=== PATIENT | male | born 1935 | race Two or more races ===

== ENCOUNTER 2016-08-26 16:28 | Inpatient (IN) | payer OTHER ==
[~2016-08-26] VITALS: Ht 154.9 cm; Wt 46.0 kg
[~2016-08-26 16:28] MED LIST: ASCO500 PO; ASPI81TA2 PO; ATOR20TA65 PO; FERR-89 PO; GLIP5TAB11 PO; ISOS30TA6 PO; METF10002 PO; METO-325 PO; NITR.4 SL; [UNRECOGNIZED DRUG - CODE] PO
[2016-08-26 16:47] LABS: GLUCOSE,POINT OF CARE 212 MG/DL (70-110)
[2016-08-26] MEDS ORDERED: HYDR25TA PO (16:49)
[2016-08-26] MEDS ORDERED: CLOP75 PO (16:49)
[2016-08-26] MEDS ORDERED: OMEP20 PO (16:49)
[2016-08-26] MEDS ORDERED: CILO100T PO (16:49)
[2016-08-26 18:04] LABS: BASOPHILS # (AUTO) 0.05 K/uL (0.00-0.20); BASOPHILS % (AUTO) 0.5 % (0.0-2.0); EOSINOPHILS # (AUTO) 0.14 K/uL (0.00-0.70); EOSINOPHILS % (AUTO) 1.38 % (1.0-6.0); HEMATOCRIT 30.8 % (41-53); HEMOGLOBIN 10.3 g/dL (13.5-17.5); LYMPHOCYTES # (AUTO) 0.9 K/uL (1.0-4.8); LYMPHOCYTES % (AUTO) 9.1 % (22.0-44.0); MEAN CORPUSCULAR HEMOGLOBIN 27.8 pg (26.0-34.0); MEAN CORPUSCULAR HGB CONC 33.5 G/dL (31.0-37.0); MEAN CORPUSCULAR VOLUME 83 fL (80-100); MONOCYTES # (AUTO) 0.6 K/uL (0.1-1.0); MONOCYTES % (AUTO) 6.5 % (2.0-9.0); NEUTROPHILS # (AUTO) 8.2 K/uL (1.8-7.7); NEUTROPHILS % (AUTO) 82.6 % (40.0-70.0); PLATELET COUNT (AUTO) 351 K/uL (150-450); RED BLOOD CELL COUNT(AUTO) 3.71 MIL/uL (4.50-5.90); WHITE BLOOD COUNT (AUTO) 9.9 K/uL (4.5-11.0)
[2016-08-26 18:14] LABS: ANION GAP 8 mmol/L (8-16); CALCIUM, TOTAL 9.1 mg/dL (8.8-10.5); CARBON DIOXIDE 31 mmol/L (22-29); CHLORIDE 97 mmol/L (98-107); CREATININE 0.76 mg/dL (0.60-1.30); GLOMERULAR FILTR. RATE CALC > 60 mL/min (>60); POTASSIUM 4.7 mmol/L (3.5-5.1); SODIUM SERUM 136 mmol/L (136-145); UREA NITROGEN, BLOOD 11 mg/dL (7-18)
[2016-08-26 18:20] LABS: ALANINE AMINOTRANSFERASE 11 U/L (12-78); ASPARTATE AMINOTRANSFERASE 13 U/L (15-37); BILIRUBIN,TOTAL 0.4 mg/dL (0.1-1.0); CREATINE KINASE, TOTAL 39 U/L (39-308); TOTAL PROTEIN, SERUM 7.2 g/dL (6.4-8.2)
[2016-08-26 18:22] LABS: B-TYPE NATRIURETIC PEPTIDE 10 pg/mL (0-100)
[2016-08-26] MEDS ORDERED: ACETAMINOPHEN 325 MG TABLET PO ONE (18:30)
[2016-08-26] MEDS ORDERED: PANTOPRAZOLE SODIUM 40 MG/VIAL IVP ONE (18:30)
[2016-08-26] MEDS ORDERED: SODIUM CHLORIDE 0.9% 1,000 ML IV ONE (18:30)
[2016-08-26] MEDS ORDERED: ONDANSETRON HCL 4 MG/2 ML VIAL IVP ONE (18:30)
[2016-08-26] MEDS ORDERED: PIPERACILLIN/TAZO 3.375 GM/D5W 50 ML IV ONE (19:15)
[2016-08-26] MEDS ORDERED: LEVOFLOXACIN 500 MG/D5% WATER 100 ML IV ONE (19:15)
[2016-08-26] MEDS ORDERED: ACETAMINOPHEN 325 MG TABLET PO PRN (19:30)
[2016-08-26] MEDS ORDERED: ONDANSETRON HCL 4 MG/2 ML VIAL IVP PRN (19:30)
[2016-08-26] MEDS ORDERED: SODIUM CHLORIDE 0.9% 100 ML ONE (20:00)
[2016-08-26] MEDS ORDERED: IOVERSOL 350 MG/ML 100 ML VIAL ONE (20:00)
[2016-08-26 21:32] LABS: ADD UA MICROSCOPIC NO; APPEARANCE,URINE CLEAR (CLEAR); GLUCOSE, URINE (UA) NEGATIVE (NEGATIVE); KETONES,URINE NEGATIVE (NEGATIVE); LEUKOCYTE ESTERASE ,URINE NEGATIVE (NEGATIVE); OCCULT BLOOD,URINE NEGATIVE (NEGATIVE); PH,URINE 6.5 (5.0-8.0); PROTEIN,URINE NEGATIVE (NEGATIVE)
[2016-08-26 22:16] VITALS: BP 115/57
[2016-08-27] VITALS (7 sets, daily range): BP systolic 94–122; BP diastolic 48–61
[2016-08-27 01:52] LABS: GLUCOSE,POINT OF CARE 165 MG/DL (70-110)
[2016-08-27] MEDS ORDERED: PANTOPRAZOLE SODIUM 40 MG/VIAL IVP SCH (09:00)
[2016-08-27] MEDS ORDERED: INSLAN SQ (09:21)
[2016-08-27] MEDS ORDERED: CLOPIDOGREL BISULFATE 75 MG TABLET PO SCH (09:45)
[2016-08-27] MEDS: CILOSTAZOL 100 MG TABLET PO SCH (09:45)
[2016-08-27] MEDS: ASPIRIN 81 MG CHEWABLE TABLET PO SCH ×2 (09:45→10:33)
[2016-08-27] MEDS: FERROUS SULFATE 325 MG EC TABLET PO SCH (10:33)
[2016-08-27] MEDS: HYDROCHLOROTHIAZIDE 25 MG TABLET PO SCH (10:33)
[2016-08-27] MEDS: INSULIN ASPART 100 UNITS/ML SQ PRN ×2 (12:21→18:04)
[2016-08-27 13:23] LABS: GLUCOSE COMMENT 1 Received Meds; GLUCOSE,POINT OF CARE 199 MG/DL (70-110)
[2016-08-27 13:23] LABS: GLUCOSE,POINT OF CARE 136 MG/DL (70-110)
[2016-08-27] MEDS: MetFORMIN HCL 500 MG TABLET PO SCH (17:43)
[2016-08-27 20:06] LABS: GLUCOSE COMMENT 1 Received Meds; GLUCOSE,POINT OF CARE 173 MG/DL (70-110)
[2016-08-27] MEDS: ATORVASTATIN CALCIUM 10 MG TABLET PO SCH (20:43)
[2016-08-27] MEDS: INSULIN DETEMIR 100 UNITS/ML SQ SCH (20:48)
[2016-08-27] MEDS ORDERED: OMEPRAZOLE 20 MG CAPSULE PO SCH (21:00)
[2016-08-28 05:29] VITALS: BP 104/58
[2016-08-28] MEDS: INSULIN ASPART 100 UNITS/ML SQ PRN ×4 (06:09→21:50)
[2016-08-28 06:18] LABS: BASOPHILS % (AUTO) 0.4 % (0.0-2.0); EOSINOPHILS % (AUTO) 1.1 % (1.0-6.0); HEMATOCRIT 28.3 % (41-53); HEMOGLOBIN 9.2 g/dL (13.5-17.5); LYMPHOCYTES # (AUTO) 0.7 K/uL (1.0-4.8); LYMPHOCYTES % (AUTO) 9.4 % (22.0-44.0); MEAN CORPUSCULAR HEMOGLOBIN 27.4 pg (26.0-34.0); MEAN CORPUSCULAR HGB CONC 32.7 G/dL (31.0-37.0); MEAN CORPUSCULAR VOLUME 84 fL (80-100); MONOCYTES # (AUTO) 0.6 K/uL (0.1-1.0); MONOCYTES % (AUTO) 7.4 % (2.0-9.0); NEUTROPHILS # (AUTO) 6.2 K/uL (1.8-7.7); NEUTROPHILS % (AUTO) 81.7 % (40.0-70.0); PLATELET COUNT (AUTO) 299 K/uL (150-450); RED BLOOD CELL COUNT(AUTO) 3.38 MIL/uL (4.50-5.90); RED CELL DISTRIBUTION WIDTH 15.4 % (11.5-14.5); WHITE BLOOD COUNT (AUTO) 7.6 K/uL (4.5-11.0)
[2016-08-28 06:48] LABS: ANION GAP 9 mmol/L (8-16); CALCIUM, TOTAL 8.5 mg/dL (8.8-10.5); CARBON DIOXIDE 30 mmol/L (22-29); CHLORIDE 97 mmol/L (98-107); CHOL/HDL RATIO 2.9 (4.2-7.3); CREATININE 0.73 mg/dL (0.60-1.30); GLOMERULAR FILTR. RATE CALC > 60 mL/min (>60); POTASSIUM 4.1 mmol/L (3.5-5.1); SODIUM SERUM 136 mmol/L (136-145); UREA NITROGEN, BLOOD 10 mg/dL (7-18)
[2016-08-28 07:32] LABS: GLUCOSE COMMENT 1 Received Meds; GLUCOSE,POINT OF CARE 152 MG/DL (70-110)
[2016-08-28 07:39] LABS: HEMOGLOBIN A1C 7.7 % (4.5-6.2)
[2016-08-28 07:54] VITALS: BP 96/48
[2016-08-28] MEDS: HYDROCHLOROTHIAZIDE 25 MG TABLET PO SCH (09:00)
[2016-08-28] MEDS: CILOSTAZOL 100 MG TABLET PO SCH (09:00)
[2016-08-28] MEDS: MetFORMIN HCL 500 MG TABLET PO SCH ×2 (09:37→18:02)
[2016-08-28] MEDS: LEVOFLOXACIN 500 MG TABLET PO SCH (09:37)
[2016-08-28] MEDS: FERROUS SULFATE 325 MG EC TABLET PO SCH (10:28)
[2016-08-28 11:31] VITALS: BP 107/60
[2016-08-28] MEDS ORDERED: MAGNESIUM SULFATE 4 GM/WATER 100 ML IV ONE (12:00)
[2016-08-28 15:32] VITALS: BP 104/57
[2016-08-28] MEDS ORDERED: MAGNESIUM SULFATE 4 GM/WATER 100 ML IV PRN (19:30)
[2016-08-28 19:42] VITALS: BP 113/62
[2016-08-28] MEDS: PANTOPRAZOLE SODIUM 40 MG DR TABLET PO SCH (20:12)
[2016-08-28] MEDS: ATORVASTATIN CALCIUM 10 MG TABLET PO SCH (20:12)
[2016-08-28] MEDS: INSULIN DETEMIR 100 UNITS/ML SQ SCH (21:49)
[2016-08-28 23:45] VITALS: BP 108/67
[2016-08-29 02:57] LABS: GLUCOSE COMMENT 1 Received Meds; GLUCOSE,POINT OF CARE 158 MG/DL (70-110)
[2016-08-29 04:29] VITALS: BP 93/54
[2016-08-29 06:11] LABS: ANION GAP 7 mmol/L (8-16); CALCIUM, TOTAL 8.2 mg/dL (8.8-10.5); CARBON DIOXIDE 30 mmol/L (22-29); CHLORIDE 101 mmol/L (98-107); CREATININE 0.64 mg/dL (0.60-1.30); GLOMERULAR FILTR. RATE CALC > 60 mL/min (>60); POTASSIUM 4.1 mmol/L (3.5-5.1); SODIUM SERUM 138 mmol/L (136-145); UREA NITROGEN, BLOOD 12 mg/dL (7-18)
[2016-08-29 06:13] LABS: BASOPHILS # (AUTO) 0.01 K/uL (0.00-0.20); BASOPHILS % (AUTO) 0.2 % (0.0-2.0); EOSINOPHILS # (AUTO) 0.02 K/uL (0.00-0.70); HEMATOCRIT 25.7 % (41-53); HEMOGLOBIN 8.5 g/dL (13.5-17.5); LYMPHOCYTES # (AUTO) 0.6 K/uL (1.0-4.8); LYMPHOCYTES % (AUTO) 7.1 % (22.0-44.0); MEAN CORPUSCULAR HEMOGLOBIN 27.7 pg (26.0-34.0); MEAN CORPUSCULAR HGB CONC 33.2 G/dL (31.0-37.0); MEAN CORPUSCULAR VOLUME 83 fL (80-100); MONOCYTES # (AUTO) 0.5 K/uL (0.1-1.0); MONOCYTES % (AUTO) 6.5 % (2.0-9.0); NEUTROPHILS # (AUTO) 6.9 K/uL (1.8-7.7); PLATELET COUNT (AUTO) 273 K/uL (150-450); RED BLOOD CELL COUNT(AUTO) 3.08 MIL/uL (4.50-5.90); RED CELL DISTRIBUTION WIDTH 15.9 % (11.5-14.5)
[2016-08-29 06:38] LABS: NEUTROPHILS % (AUTO) 86.1 % (40.0-70.0)
[2016-08-29 07:53] VITALS: BP 106/54
[2016-08-29] MEDS: FERROUS SULFATE 325 MG EC TABLET PO SCH (08:20)
[2016-08-29] MEDS: CILOSTAZOL 100 MG TABLET PO SCH (08:21)
[2016-08-29] MEDS: MetFORMIN HCL 500 MG TABLET PO SCH ×2 (08:21→17:48)
[2016-08-29 11:25] VITALS: BP 104/77
[2016-08-29] MEDS: LEVOFLOXACIN 500 MG TABLET PO SCH (12:15)
[2016-08-29] MEDS: INSULIN ASPART 100 UNITS/ML SQ PRN ×2 (12:16→20:54)
[2016-08-29] MEDS: HYDROCHLOROTHIAZIDE 25 MG TABLET PO SCH (12:20)
[2016-08-29 14:54] VITALS: BP 96/52
[2016-08-29 17:57] LABS: GLUCOSE,POINT OF CARE 130 MG/DL (70-110)
[2016-08-29 19:52] VITALS: BP 117/57
[2016-08-29 20:07] LABS: GLUCOSE,POINT OF CARE 120 MG/DL (70-110)
[2016-08-29 20:12] LABS: GLUCOSE COMMENT 1 Received Meds; GLUCOSE,POINT OF CARE 208 MG/DL (70-110)
[2016-08-29 20:12] LABS: GLUCOSE COMMENT 1 Received Meds; GLUCOSE,POINT OF CARE 190 MG/DL (70-110)
[2016-08-29] MEDS: PANTOPRAZOLE SODIUM 40 MG DR TABLET PO SCH (20:22)
[2016-08-29] MEDS: ATORVASTATIN CALCIUM 10 MG TABLET PO SCH (20:23)
[2016-08-29 20:42] LABS: GLUCOSE,POINT OF CARE 60 MG/DL (70-110)
[2016-08-29 20:43] LABS: GLUCOSE COMMENT 1 Received Meds; GLUCOSE,POINT OF CARE 142 MG/DL (70-110)
[2016-08-29 20:43] LABS: GLUCOSE COMMENT 1 Received Meds; GLUCOSE,POINT OF CARE 156 MG/DL (70-110)
[2016-08-29] MEDS: INSULIN DETEMIR 100 UNITS/ML SQ SCH (20:54)
[2016-08-29 21:32] LABS: GLUCOSE,POINT OF CARE 148 MG/DL (70-110)
[2016-08-29 23:22] VITALS: BP 100/59
[2016-08-30 05:31] VITALS: BP 95/53
[2016-08-30 06:03] LABS: BASOPHILS % (AUTO) 0.3 % (0.0-2.0); EOSINOPHILS % (AUTO) 0.6 % (1.0-6.0); HEMOGLOBIN 9.3 g/dL (13.5-17.5); LYMPHOCYTES # (AUTO) 0.8 K/uL (1.0-4.8); MEAN CORPUSCULAR VOLUME 84 fL (80-100); MONOCYTES # (AUTO) 0.6 K/uL (0.1-1.0); MONOCYTES % (AUTO) 6.5 % (2.0-9.0); NEUTROPHILS # (AUTO) 7.4 K/uL (1.8-7.7); NEUTROPHILS % (AUTO) 83.6 % (40.0-70.0); PLATELET COUNT (AUTO) 300 K/uL (150-450); RED BLOOD CELL COUNT(AUTO) 3.44 MIL/uL (4.50-5.90); RED CELL DISTRIBUTION WIDTH 15.5 % (11.5-14.5); WHITE BLOOD COUNT (AUTO) 8.9 K/uL (4.5-11.0)
[2016-08-30] MEDS: DEXTROSE 50%-WATER 25 GM/50 ML SYRINGE IVP PRN (06:48)
[2016-08-30 07:04] LABS: ALANINE AMINOTRANSFERASE 11 U/L (12-78); ALBUMIN 2.4 g/dL (3.4-5.0); ANION GAP 9 mmol/L (8-16); ASPARTATE AMINOTRANSFERASE 15 U/L (15-37); BILIRUBIN,TOTAL 0.4 mg/dL (0.1-1.0); CALCIUM, TOTAL 8.4 mg/dL (8.8-10.5); CARBON DIOXIDE 29 mmol/L (22-29); CHLORIDE 101 mmol/L (98-107); CREATININE 0.62 mg/dL (0.60-1.30); GLOMERULAR FILTR. RATE CALC > 60 mL/min (>60); SODIUM SERUM 139 mmol/L (136-145); TOTAL PROTEIN, SERUM 6.3 g/dL (6.4-8.2); UREA NITROGEN, BLOOD 13 mg/dL (7-18)
[2016-08-30 07:17] VITALS: BP 116/55
[2016-08-30 07:17] LABS: GLUCOSE COMMENT 1 Juice/Food/D50 Given; GLUCOSE,POINT OF CARE 62 MG/DL (70-110)
[2016-08-30 07:17] LABS: GLUCOSE COMMENT 1 Juice/Food/D50 Given; GLUCOSE,POINT OF CARE 56 MG/DL (70-110)
[2016-08-30 07:17] LABS: GLUCOSE,POINT OF CARE 221 MG/DL (70-110)
[2016-08-30] MEDS: FERROUS SULFATE 325 MG EC TABLET PO SCH (08:41)
[2016-08-30] MEDS: MetFORMIN HCL 500 MG TABLET PO SCH ×2 (08:41→17:24)
[2016-08-30] MEDS: RIFAMPIN 150 MG CAPSULE PO SCH (08:41)
[2016-08-30] MEDS: HYDROCHLOROTHIAZIDE 25 MG TABLET PO SCH (08:41)
[2016-08-30] MEDS: PYRIDOXINE HCL 50 MG TABLET PO SCH (08:42)
[2016-08-30] MEDS: CILOSTAZOL 100 MG TABLET PO SCH (08:42)
[2016-08-30] MEDS: PYRAZINAMIDE 500 MG TABLET PO SCH (08:42)
[2016-08-30] MEDS: ETHAMBUTOL HCL 400 MG TABLET PO SCH (08:42)
[2016-08-30] MEDS: ISONIAZID 100 MG TABLET PO SCH (08:43)
[2016-08-30 12:18] VITALS: BP 119/74
[2016-08-30 16:38] VITALS: BP 103/64
[2016-08-30 18:32] LABS: GLUCOSE,POINT OF CARE 88 MG/DL (70-110)
[2016-08-30 18:32] LABS: GLUCOSE,POINT OF CARE 114 MG/DL (70-110)
[2016-08-30] MEDS: PANTOPRAZOLE SODIUM 40 MG DR TABLET PO SCH (20:51)
[2016-08-30] MEDS: ATORVASTATIN CALCIUM 10 MG TABLET PO SCH (20:51)
[2016-08-30] MEDS: INSULIN DETEMIR 100 UNITS/ML SQ SCH (21:02)
[2016-08-30 21:09] VITALS: BP 114/58
[2016-08-31] VITALS (7 sets, daily range): BP systolic 96–124; BP diastolic 51–74
[2016-08-31 00:07] LABS: GLUCOSE,POINT OF CARE 90 MG/DL (70-110)
[2016-08-31] MEDS: DEXTROSE 50%-WATER 25 GM/50 ML SYRINGE IVP PRN (06:04)
[2016-08-31 07:52] LABS: GLUCOSE COMMENT 1 Repeated; GLUCOSE,POINT OF CARE 53 MG/DL (70-110)
[2016-08-31 07:57] LABS: GLUCOSE COMMENT 1 Repeated; GLUCOSE,POINT OF CARE 205 MG/DL (70-110)
[2016-08-31 07:57] LABS: GLUCOSE COMMENT 1 Juice/Food/D50 Given; GLUCOSE,POINT OF CARE 52 MG/DL (70-110)
[2016-08-31] MEDS: MetFORMIN HCL 500 MG TABLET PO SCH ×2 (08:52→18:06)
[2016-08-31] MEDS: PYRIDOXINE HCL 50 MG TABLET PO SCH (08:52)
[2016-08-31] MEDS: FERROUS SULFATE 325 MG EC TABLET PO SCH (08:53)
[2016-08-31] MEDS: HYDROCHLOROTHIAZIDE 25 MG TABLET PO SCH (08:53)
[2016-08-31] MEDS: RIFAMPIN 150 MG CAPSULE PO SCH (08:53)
[2016-08-31] MEDS: PYRAZINAMIDE 500 MG TABLET PO SCH (08:54)
[2016-08-31] MEDS: ETHAMBUTOL HCL 400 MG TABLET PO SCH (08:54)
[2016-08-31] MEDS: CILOSTAZOL 100 MG TABLET PO SCH (08:54)
[2016-08-31] MEDS: ISONIAZID 100 MG TABLET PO SCH (08:55)
[2016-08-31 11:52] LABS: GLUCOSE COMMENT 1 Doctor Notified; GLUCOSE,POINT OF CARE 69 MG/DL (70-110)
[2016-08-31 17:32] LABS: GLUCOSE,POINT OF CARE 94 MG/DL (70-110)
[2016-08-31] MEDS: ATORVASTATIN CALCIUM 10 MG TABLET PO SCH (20:43)
[2016-08-31] MEDS: PANTOPRAZOLE SODIUM 40 MG DR TABLET PO SCH (20:44)
[2016-08-31] MEDS: INSULIN DETEMIR 100 UNITS/ML SQ SCH (20:45)
[2016-08-31 20:52] LABS: GLUCOSE COMMENT 1 Received Meds; GLUCOSE,POINT OF CARE 90 MG/DL (70-110)
[2016-09-01 04:48] VITALS: BP 107/50
[2016-09-01 06:21] LABS: GLUCOSE,POINT OF CARE 107 MG/DL (70-110)
[2016-09-01 06:37] LABS: BASOPHILS % (AUTO) 0.5 % (0.0-2.0); EOSINOPHILS % (AUTO) 2.2 % (1.0-6.0); HEMATOCRIT 28.8 % (41-53); HEMOGLOBIN 9.3 g/dL (13.5-17.5); LYMPHOCYTES # (AUTO) 1.1 K/uL (1.0-4.8); LYMPHOCYTES % (AUTO) 15.2 % (22.0-44.0); MEAN CORPUSCULAR HEMOGLOBIN 27.4 pg (26.0-34.0); MEAN CORPUSCULAR HGB CONC 32.3 G/dL (31.0-37.0); MEAN CORPUSCULAR VOLUME 85 fL (80-100); MONOCYTES # (AUTO) 0.5 K/uL (0.1-1.0); MONOCYTES % (AUTO) 7.4 % (2.0-9.0); NEUTROPHILS # (AUTO) 5.3 K/uL (1.8-7.7); NEUTROPHILS % (AUTO) 74.7 % (40.0-70.0); PLATELET COUNT (AUTO) 315 K/uL (150-450); RED BLOOD CELL COUNT(AUTO) 3.39 MIL/uL (4.50-5.90); RED CELL DISTRIBUTION WIDTH 16.2 % (11.5-14.5); WHITE BLOOD COUNT (AUTO) 7.1 K/uL (4.5-11.0)
[2016-09-01 06:39] LABS: ANION GAP 10 mmol/L (8-16); CALCIUM, TOTAL 8.3 mg/dL (8.8-10.5); CARBON DIOXIDE 26 mmol/L (22-29); CHLORIDE 96 mmol/L (98-107); CREATININE 0.81 mg/dL (0.60-1.30); GLOMERULAR FILTR. RATE CALC > 60 mL/min (>60); POTASSIUM 4.3 mmol/L (3.5-5.1); SODIUM SERUM 132 mmol/L (136-145); UREA NITROGEN, BLOOD 18 mg/dL (7-18)
[2016-09-01] MEDS: FERROUS SULFATE 325 MG EC TABLET PO SCH (07:44)
[2016-09-01] MEDS: MetFORMIN HCL 500 MG TABLET PO SCH ×2 (07:44→18:04)
[2016-09-01] MEDS: HYDROCHLOROTHIAZIDE 25 MG TABLET PO SCH (07:44)
[2016-09-01] MEDS: RIFAMPIN 150 MG CAPSULE PO SCH (07:45)
[2016-09-01] MEDS: ETHAMBUTOL HCL 400 MG TABLET PO SCH (07:45)
[2016-09-01] MEDS: PYRIDOXINE HCL 50 MG TABLET PO SCH (07:45)
[2016-09-01] MEDS: ISONIAZID 100 MG TABLET PO SCH (07:45)
[2016-09-01] MEDS: PYRAZINAMIDE 500 MG TABLET PO SCH (07:45)
[2016-09-01] MEDS: CILOSTAZOL 100 MG TABLET PO SCH (07:45)
[2016-09-01] MEDS ORDERED: SODIUM CHLORIDE 0.9% 250 ML IV ONE (08:06)
[2016-09-01 08:15] VITALS: BP 106/51
[2016-09-01] MEDS: MAGNESIUM SULFATE 2 GM in DEXTROSE 5%-WATER 50 ML IV PRN (08:18)
[2016-09-01 11:00] VITALS: BP 99/57
[2016-09-01 11:37] LABS: GLUCOSE,POINT OF CARE 90 MG/DL (70-110)
[2016-09-01 15:00] VITALS: BP 114/56
[2016-09-01] MEDS ORDERED: ATOR10TA84 PO (15:48)
[2016-09-01] MEDS ORDERED: 0.9% SODIUM CHLORIDE 10 ML SYRINGE IVP PRN (16:00)
[2016-09-01 17:42] LABS: GLUCOSE,POINT OF CARE 84 MG/DL (70-110)
[2016-09-01 20:08] VITALS: BP 121/74
[2016-09-01] MEDS: ATORVASTATIN CALCIUM 10 MG TABLET PO SCH (20:19)
[2016-09-01] MEDS: PANTOPRAZOLE SODIUM 40 MG DR TABLET PO SCH (20:19)
[2016-09-01] MEDS: INSULIN DETEMIR 100 UNITS/ML SQ SCH (20:20)
[2016-09-01] MEDS: INSULIN ASPART 100 UNITS/ML SQ PRN (20:21)
[2016-09-01 20:32] LABS: GLUCOSE COMMENT 1 Received Meds; GLUCOSE,POINT OF CARE 153 MG/DL (70-110)
[2016-09-01 23:13] VITALS: BP 100/52
[2016-09-02] MEDS: CILOSTAZOL 100 MG TABLET PO SCH (05:29)
[2016-09-02 06:05] VITALS: BP 102/52
[2016-09-02 06:41] LABS: GLUCOSE COMMENT 1 Juice/Food/D50 Given; GLUCOSE,POINT OF CARE 76 MG/DL (70-110)
[2016-09-02 07:10] VITALS: BP 101/56
[2016-09-02 07:48] LABS: ANION GAP 6 mmol/L (8-16); CALCIUM, TOTAL 8.3 mg/dL (8.8-10.5); CARBON DIOXIDE 28 mmol/L (22-29); CHLORIDE 98 mmol/L (98-107); CREATININE 0.81 mg/dL (0.60-1.30); GLOMERULAR FILTR. RATE CALC > 60 mL/min (>60); POTASSIUM 5.3 mmol/L (3.5-5.1); SODIUM SERUM 132 mmol/L (136-145); UREA NITROGEN, BLOOD 16 mg/dL (7-18)
[2016-09-02] MEDS: MAGNESIUM OXIDE 400 MG TABLET PO PRN ×3 (08:58→16:35)
[2016-09-02] MEDS: FERROUS SULFATE 325 MG EC TABLET PO SCH (08:58)
[2016-09-02] MEDS: PYRIDOXINE HCL 50 MG TABLET PO SCH (08:59)
[2016-09-02] MEDS: ETHAMBUTOL HCL 400 MG TABLET PO SCH (08:59)
[2016-09-02] MEDS: ISONIAZID 100 MG TABLET PO SCH (08:59)
[2016-09-02] MEDS: RIFAMPIN 150 MG CAPSULE PO SCH (08:59)
[2016-09-02] MEDS: PYRAZINAMIDE 500 MG TABLET PO SCH (08:59)
[2016-09-02] MEDS: MetFORMIN HCL 500 MG TABLET PO SCH ×2 (09:03→18:17)
[2016-09-02 09:11] LABS: GLUCOSE,POINT OF CARE 186 MG/DL (70-110)
[2016-09-02 11:04] VITALS: BP 109/50
[2016-09-02 11:31] LABS: GLUCOSE,POINT OF CARE 172 MG/DL (70-110)
[2016-09-02] MEDS: INSULIN ASPART 100 UNITS/ML SQ PRN (11:45)
[2016-09-02 15:43] VITALS: BP 113/58
[2016-09-02] MEDS: HYDROCHLOROTHIAZIDE 25 MG TABLET PO SCH (16:37)
[2016-09-02 18:12] LABS: GLUCOSE,POINT OF CARE 125 MG/DL (70-110)
[2016-09-02 19:55] VITALS: BP 118/56
[2016-09-02] MEDS: PANTOPRAZOLE SODIUM 40 MG DR TABLET PO SCH (20:18)
[2016-09-02] MEDS: ATORVASTATIN CALCIUM 10 MG TABLET PO SCH (20:18)
[2016-09-02] MEDS: INSULIN DETEMIR 100 UNITS/ML SQ SCH (20:51)
[2016-09-02 20:57] LABS: GLUCOSE,POINT OF CARE 135 MG/DL (70-110)
[2016-09-02 23:56] VITALS: BP 109/54
[2016-09-03 03:53] VITALS: BP 119/67
[2016-09-03 05:57] LABS: GLUCOSE COMMENT 1 Juice/Food/D50 Given; GLUCOSE,POINT OF CARE 55 MG/DL (70-110)
[2016-09-03 06:11] LABS: GLUCOSE COMMENT 1 Juice/Food/D50 Given; GLUCOSE,POINT OF CARE 70 MG/DL (70-110)
[2016-09-03] MEDS: CILOSTAZOL 100 MG TABLET PO SCH (06:25)
[2016-09-03 06:43] LABS: MAGNESIUM 1.4 mg/dL (1.80-2.40)
[2016-09-03] MEDS: HYDROCHLOROTHIAZIDE 25 MG TABLET PO SCH (07:27)
[2016-09-03] MEDS: PYRIDOXINE HCL 50 MG TABLET PO SCH (07:27)
[2016-09-03] MEDS: RIFAMPIN 150 MG CAPSULE PO SCH (07:27)
[2016-09-03] MEDS: ETHAMBUTOL HCL 400 MG TABLET PO SCH (07:27)
[2016-09-03] MEDS: PYRAZINAMIDE 500 MG TABLET PO SCH (07:27)
[2016-09-03] MEDS: FERROUS SULFATE 325 MG EC TABLET PO SCH (07:28)
[2016-09-03] MEDS: ISONIAZID 100 MG TABLET PO SCH (07:28)
[2016-09-03] MEDS: MetFORMIN HCL 500 MG TABLET PO SCH ×2 (07:32→17:16)
[2016-09-03 08:08] VITALS: BP 107/51
[2016-09-03 11:41] VITALS: BP 115/59
[2016-09-03 12:27] LABS: GLUCOSE,POINT OF CARE 83 MG/DL (70-110)
[2016-09-03 16:10] VITALS: BP 104/57
[2016-09-03 17:22] LABS: GLUCOSE,POINT OF CARE 85 MG/DL (70-110)
[2016-09-03] MEDS ORDERED: MAGNESIUM OXIDE 400 MG TABLET PO PRN (17:45)
[2016-09-03] MEDS ORDERED: MAGNESIUM SULFATE 4 GM/WATER 100 ML IV PRN (17:45)
[2016-09-03] MEDS ORDERED: MAGNESIUM SULFATE 2 GM in DEXTROSE 5%-WATER 50 ML IV PRN (17:45)
[2016-09-03] MEDS: MAGNESIUM SULFATE 2 GM in DEXTROSE 5%-WATER 50 ML IV PRN (18:36)
[2016-09-03 18:40] LABS: ALBUMIN 2.5 g/dL (3.4-5.0)
[2016-09-03 19:41] VITALS: BP 115/56
[2016-09-03] MEDS: ATORVASTATIN CALCIUM 10 MG TABLET PO SCH (20:43)
[2016-09-03] MEDS: PANTOPRAZOLE SODIUM 40 MG DR TABLET PO SCH (20:43)
[2016-09-03] MEDS: MEGESTROL ACETATE 400 MG/10 ML SUSPENSION UDCUP PO SCH (20:46)
[2016-09-03] MEDS: INSULIN DETEMIR 100 UNITS/ML SQ SCH (21:00)
[2016-09-03 22:56] LABS: GLUCOSE,POINT OF CARE 103 MG/DL (70-110)
[2016-09-03 23:15] VITALS: BP 111/58
[2016-09-04 03:30] VITALS: BP 114/84
[2016-09-04] MEDS: CILOSTAZOL 100 MG TABLET PO SCH (06:14)
[2016-09-04 06:22] LABS: BASOPHILS % (AUTO) 0.6 % (0.0-2.0); EOSINOPHILS % (AUTO) 1.6 % (1.0-6.0); HEMATOCRIT 31.2 % (41-53); LYMPHOCYTES # (AUTO) 1.3 K/uL (1.0-4.8); LYMPHOCYTES % (AUTO) 14.4 % (22.0-44.0); MEAN CORPUSCULAR HEMOGLOBIN 27.1 pg (26.0-34.0); MEAN CORPUSCULAR HGB CONC 31.9 G/dL (31.0-37.0); MEAN CORPUSCULAR VOLUME 85 fL (80-100); MONOCYTES # (AUTO) 0.4 K/uL (0.1-1.0); NEUTROPHILS # (AUTO) 6.8 K/uL (1.8-7.7); NEUTROPHILS % (AUTO) 78.4 % (40.0-70.0); PLATELET COUNT (AUTO) 387 K/uL (150-450); RED BLOOD CELL COUNT(AUTO) 3.67 MIL/uL (4.50-5.90); RED CELL DISTRIBUTION WIDTH 16.2 % (11.5-14.5); WHITE BLOOD COUNT (AUTO) 8.7 K/uL (4.5-11.0)
[2016-09-04 06:43] LABS: GLUCOSE,POINT OF CARE 80 MG/DL (70-110)
[2016-09-04 06:57] LABS: ALBUMIN 2.5 g/dL (3.4-5.0); ANION GAP 6 mmol/L (8-16); CALCIUM, TOTAL 8.8 mg/dL (8.8-10.5); CARBON DIOXIDE 27 mmol/L (22-29); CHLORIDE 99 mmol/L (98-107); CREATININE 0.85 mg/dL (0.60-1.30); GLOMERULAR FILTR. RATE CALC > 60 mL/min (>60); SODIUM SERUM 132 mmol/L (136-145); UREA NITROGEN, BLOOD 14 mg/dL (7-18)
[2016-09-04 07:02] LABS: POTASSIUM 6.2 mmol/L (3.5-5.1)
[2016-09-04 07:29] VITALS: BP 128/64
[2016-09-04] MEDS ORDERED: SODIUM POLYSTYRENE SULFONATE 15 GM/60 ML SUSPENSION BOTTLE PO ONE (07:30)
[2016-09-04] MEDS: ETHAMBUTOL HCL 400 MG TABLET PO SCH (08:43)
[2016-09-04] MEDS: MetFORMIN HCL 500 MG TABLET PO SCH ×2 (08:43→17:40)
[2016-09-04] MEDS: PYRAZINAMIDE 500 MG TABLET PO SCH (08:43)
[2016-09-04] MEDS: HYDROCHLOROTHIAZIDE 25 MG TABLET PO SCH (08:43)
[2016-09-04] MEDS: MEGESTROL ACETATE 400 MG/10 ML SUSPENSION UDCUP PO SCH ×2 (08:43→20:31)
[2016-09-04] MEDS: PYRIDOXINE HCL 50 MG TABLET PO SCH (08:43)
[2016-09-04] MEDS: FERROUS SULFATE 325 MG EC TABLET PO SCH (08:43)
[2016-09-04] MEDS: ISONIAZID 100 MG TABLET PO SCH (08:43)
[2016-09-04] MEDS: RIFAMPIN 150 MG CAPSULE PO SCH (08:44)
[2016-09-04] MEDS: ONDANSETRON HCL 4 MG/2 ML VIAL IVP PRN (10:45)
[2016-09-04 11:10] VITALS: BP 101/51
[2016-09-04 13:31] LABS: GLUCOSE,POINT OF CARE 117 MG/DL (70-110)
[2016-09-04 16:33] VITALS: BP 106/56
[2016-09-04 17:57] LABS: GLUCOSE,POINT OF CARE 139 MG/DL (70-110)
[2016-09-04 20:25] VITALS: BP 110/56
[2016-09-04] MEDS: PANTOPRAZOLE SODIUM 40 MG DR TABLET PO SCH (20:31)
[2016-09-04] MEDS: ATORVASTATIN CALCIUM 10 MG TABLET PO SCH (20:31)
[2016-09-04] MEDS: INSULIN DETEMIR 100 UNITS/ML SQ SCH (20:36)
[2016-09-04 21:58] LABS: GLUCOSE,POINT OF CARE 110 MG/DL (70-110)
[2016-09-04 23:22] VITALS: BP 103/53
[2016-09-05 03:30] VITALS: BP 105/61
[2016-09-05 06:04] LABS: BASOPHILS # (AUTO) 0.02 K/uL (0.00-0.20); BASOPHILS % (AUTO) 0.1 % (0.0-2.0); EOSINOPHILS # (AUTO) 0.15 K/uL (0.00-0.70); EOSINOPHILS % (AUTO) 1.16 % (1.0-6.0); HEMATOCRIT 32.4 % (41-53); HEMOGLOBIN 10.5 g/dL (13.5-17.5); LYMPHOCYTES # (AUTO) 1.3 K/uL (1.0-4.8); LYMPHOCYTES % (AUTO) 10.1 % (22.0-44.0); MEAN CORPUSCULAR HEMOGLOBIN 27.8 pg (26.0-34.0); MEAN CORPUSCULAR HGB CONC 32.4 G/dL (31.0-37.0); MEAN CORPUSCULAR VOLUME 86 fL (80-100); MONOCYTES # (AUTO) 0.5 K/uL (0.1-1.0); MONOCYTES % (AUTO) 3.6 % (2.0-9.0); NEUTROPHILS # (AUTO) 10.7 K/uL (1.8-7.7); NEUTROPHILS % (AUTO) 84.9 % (40.0-70.0); PLATELET COUNT (AUTO) 406 K/uL (150-450); RED BLOOD CELL COUNT(AUTO) 3.78 MIL/uL (4.50-5.90); RED CELL DISTRIBUTION WIDTH 16.3 % (11.5-14.5); WHITE BLOOD COUNT (AUTO) 12.6 K/uL (4.5-11.0)
[2016-09-05] MEDS: CILOSTAZOL 100 MG TABLET PO SCH (06:21)
[2016-09-05 06:57] LABS: GLUCOSE,POINT OF CARE 87 MG/DL (70-110)
[2016-09-05 07:38] LABS: ALANINE AMINOTRANSFERASE 20 U/L (12-78); ALBUMIN 2.7 g/dL (3.4-5.0); ANION GAP 9 mmol/L (8-16); ASPARTATE AMINOTRANSFERASE 21 U/L (15-37); BILIRUBIN,TOTAL 0.2 mg/dL (0.1-1.0); CALCIUM, TOTAL 8.7 mg/dL (8.8-10.5); CARBON DIOXIDE 27 mmol/L (22-29); CHLORIDE 98 mmol/L (98-107); CREATININE 0.81 mg/dL (0.60-1.30); GLOMERULAR FILTR. RATE CALC > 60 mL/min (>60); POTASSIUM 5.2 mmol/L (3.5-5.1); SODIUM SERUM 134 mmol/L (136-145); TOTAL PROTEIN, SERUM 6.6 g/dL (6.4-8.2); UREA NITROGEN, BLOOD 17 mg/dL (7-18)
[2016-09-05 08:13] VITALS: BP 140/76
[2016-09-05] MEDS: MetFORMIN HCL 500 MG TABLET PO SCH ×2 (08:33→16:50)
[2016-09-05] MEDS: MEGESTROL ACETATE 400 MG/10 ML SUSPENSION UDCUP PO SCH ×2 (08:33→20:47)
[2016-09-05] MEDS: CLOPIDOGREL BISULFATE 75 MG TABLET PO SCH (08:33)
[2016-09-05] MEDS: ASPIRIN 81 MG EC TABLET PO SCH (08:33)
[2016-09-05] MEDS: HYDROCHLOROTHIAZIDE 25 MG TABLET PO SCH (08:34)
[2016-09-05] MEDS: PYRIDOXINE HCL 50 MG TABLET PO SCH (08:34)
[2016-09-05] MEDS: FERROUS SULFATE 325 MG EC TABLET PO SCH (08:34)
[2016-09-05] MEDS: RIFAMPIN 150 MG CAPSULE PO SCH (08:35)
[2016-09-05] MEDS: ETHAMBUTOL HCL 400 MG TABLET PO SCH (08:35)
[2016-09-05] MEDS: PYRAZINAMIDE 500 MG TABLET PO SCH (08:35)
[2016-09-05] MEDS: ISONIAZID 100 MG TABLET PO SCH (08:36)
[2016-09-05 10:58] VITALS: BP 112/59
[2016-09-05 12:12] LABS: GLUCOSE,POINT OF CARE 137 MG/DL (70-110)
[2016-09-05] MEDS: MAGNESIUM OXIDE 400 MG TABLET PO PRN ×3 (12:36→20:46)
[2016-09-05 15:18] VITALS: BP 104/56
[2016-09-05 17:12] LABS: GLUCOSE,POINT OF CARE 103 MG/DL (70-110)
[2016-09-05 19:15] VITALS: BP 101/56
[2016-09-05] MEDS: ATORVASTATIN CALCIUM 10 MG TABLET PO SCH (20:46)
[2016-09-05] MEDS: PANTOPRAZOLE SODIUM 40 MG DR TABLET PO SCH (20:46)
[2016-09-05] MEDS: INSULIN DETEMIR 100 UNITS/ML SQ SCH (20:53)
[2016-09-05 23:50] VITALS: BP 104/52
[2016-09-06 04:45] VITALS: BP 119/55
[2016-09-06] MEDS: CILOSTAZOL 100 MG TABLET PO SCH (05:21)
[2016-09-06 07:00] VITALS: BP 105/61
[2016-09-06] MEDS: PYRAZINAMIDE 500 MG TABLET PO SCH (08:08)
[2016-09-06] MEDS: PYRIDOXINE HCL 50 MG TABLET PO SCH (08:09)
[2016-09-06] MEDS: ISONIAZID 100 MG TABLET PO SCH (08:09)
[2016-09-06] MEDS: MEGESTROL ACETATE 400 MG/10 ML SUSPENSION UDCUP PO SCH ×2 (08:10→20:45)
[2016-09-06] MEDS: HYDROCHLOROTHIAZIDE 25 MG TABLET PO SCH (08:10)
[2016-09-06] MEDS: MetFORMIN HCL 500 MG TABLET PO SCH ×2 (08:10→16:56)
[2016-09-06] MEDS: ASPIRIN 81 MG EC TABLET PO SCH (08:10)
[2016-09-06] MEDS: FERROUS SULFATE 325 MG EC TABLET PO SCH (08:10)
[2016-09-06] MEDS: ETHAMBUTOL HCL 400 MG TABLET PO SCH (08:10)
[2016-09-06] MEDS: CLOPIDOGREL BISULFATE 75 MG TABLET PO SCH (08:11)
[2016-09-06] MEDS: RIFAMPIN 150 MG CAPSULE PO SCH (08:11)
[2016-09-06 08:58] LABS: GLUCOSE,POINT OF CARE 105 MG/DL (70-110)
[2016-09-06 08:58] LABS: GLUCOSE,POINT OF CARE 71 MG/DL (70-110)
[2016-09-06] MEDS ORDERED: ONDANSETRON HCL 4 MG/2 ML VIAL IVP PRN (10:15)
[2016-09-06 11:13] VITALS: BP 100/52
[2016-09-06] MEDS: ONDANSETRON HCL 4 MG/2 ML VIAL IVP PRN (11:41)
[2016-09-06] MEDS: MAGNESIUM OXIDE 400 MG TABLET PO PRN ×3 (11:41→20:45)
[2016-09-06 11:59] LABS: GLUCOSE,POINT OF CARE 77 MG/DL (70-110)
[2016-09-06 15:30] VITALS: BP 104/52
[2016-09-06 19:18] VITALS: BP 99/54
[2016-09-06 19:39] LABS: GLUCOSE,POINT OF CARE 104 MG/DL (70-110)
[2016-09-06] MEDS: ATORVASTATIN CALCIUM 10 MG TABLET PO SCH (20:45)
[2016-09-06] MEDS: PANTOPRAZOLE SODIUM 40 MG DR TABLET PO SCH (20:45)
[2016-09-06] MEDS: INSULIN DETEMIR 100 UNITS/ML SQ SCH (20:46)
[2016-09-06 20:57] LABS: GLUCOSE,POINT OF CARE 121 MG/DL (70-110)
[2016-09-06 23:05] VITALS: BP 108/58
[2016-09-07 04:15] VITALS: BP 107/55
[2016-09-07] MEDS: CILOSTAZOL 100 MG TABLET PO SCH (05:20)
[2016-09-07 07:54] VITALS: BP 115/66
[2016-09-07] MEDS: ASPIRIN 81 MG EC TABLET PO SCH (09:12)
[2016-09-07] MEDS: MetFORMIN HCL 500 MG TABLET PO SCH ×2 (09:13→17:45)
[2016-09-07] MEDS: MEGESTROL ACETATE 400 MG/10 ML SUSPENSION UDCUP PO SCH ×2 (09:13→20:31)
[2016-09-07] MEDS: HYDROCHLOROTHIAZIDE 25 MG TABLET PO SCH (09:13)
[2016-09-07] MEDS: PYRIDOXINE HCL 50 MG TABLET PO SCH (09:13)
[2016-09-07] MEDS: FERROUS SULFATE 325 MG EC TABLET PO SCH (09:13)
[2016-09-07] MEDS: CLOPIDOGREL BISULFATE 75 MG TABLET PO SCH (09:13)
[2016-09-07] MEDS: RIFAMPIN 150 MG CAPSULE PO SCH (09:13)
[2016-09-07] MEDS: ISONIAZID 100 MG TABLET PO SCH (09:14)
[2016-09-07] MEDS: ETHAMBUTOL HCL 400 MG TABLET PO SCH (09:14)
[2016-09-07] MEDS: PYRAZINAMIDE 500 MG TABLET PO SCH (09:14)
[2016-09-07 11:04] LABS: GLUCOSE,POINT OF CARE 93 MG/DL (70-110)
[2016-09-07 11:26] VITALS: BP 111/52
[2016-09-07] MEDS: MAGNESIUM OXIDE 400 MG TABLET PO PRN ×3 (12:26→20:31)
[2016-09-07 15:09] LABS: GLUCOSE,POINT OF CARE 86 MG/DL (70-110)
[2016-09-07 16:00] VITALS: BP 101/55
[2016-09-07 19:07] LABS: GLUCOSE,POINT OF CARE 87 MG/DL (70-110)
[2016-09-07 19:56] VITALS: BP 113/52
[2016-09-07] MEDS: ATORVASTATIN CALCIUM 10 MG TABLET PO SCH (20:31)
[2016-09-07] MEDS: PANTOPRAZOLE SODIUM 40 MG DR TABLET PO SCH (20:31)
[2016-09-07] MEDS: INSULIN DETEMIR 100 UNITS/ML SQ SCH (20:34)
[2016-09-07 20:37] LABS: GLUCOSE,POINT OF CARE 77 MG/DL (70-110)
[2016-09-07 23:12] VITALS: BP 115/59
[2016-09-08 05:15] VITALS: BP 109/57
[2016-09-08] MEDS: CILOSTAZOL 100 MG TABLET PO SCH (05:40)
[2016-09-08 07:00] LABS: ANION GAP 12 mmol/L (8-16); CALCIUM, TOTAL 8.9 mg/dL (8.8-10.5); CARBON DIOXIDE 25 mmol/L (22-29); CHLORIDE 96 mmol/L (98-107); CREATININE 0.95 mg/dL (0.60-1.30); GLOMERULAR FILTR. RATE CALC > 60 mL/min (>60); POTASSIUM 5.3 mmol/L (3.5-5.1); SODIUM SERUM 133 mmol/L (136-145); UREA NITROGEN, BLOOD 23 mg/dL (7-18)
[2016-09-08 07:04] LABS: BASOPHILS # (AUTO) 0.02 K/uL (0.00-0.20); BASOPHILS % (AUTO) 0.2 % (0.0-2.0); EOSINOPHILS % (AUTO) 1.87 % (1.0-6.0); HEMATOCRIT 34.4 % (41-53); HEMOGLOBIN 11.2 g/dL (13.5-17.5); LYMPHOCYTES # (AUTO) 1.4 K/uL (1.0-4.8); LYMPHOCYTES % (AUTO) 12.8 % (22.0-44.0); MEAN CORPUSCULAR HEMOGLOBIN 27.7 pg (26.0-34.0); MEAN CORPUSCULAR HGB CONC 32.4 G/dL (31.0-37.0); MEAN CORPUSCULAR VOLUME 85 fL (80-100); MONOCYTES # (AUTO) 0.6 K/uL (0.1-1.0); MONOCYTES % (AUTO) 5.2 % (2.0-9.0); NEUTROPHILS # (AUTO) 8.5 K/uL (1.8-7.7); PLATELET COUNT (AUTO) 491 K/uL (150-450); RED BLOOD CELL COUNT(AUTO) 4.04 MIL/uL (4.50-5.90); RED CELL DISTRIBUTION WIDTH 16.8 % (11.5-14.5); WHITE BLOOD COUNT (AUTO) 10.6 K/uL (4.5-11.0)
[2016-09-08 07:52] VITALS: BP 121/61
[2016-09-08] MEDS: CLOPIDOGREL BISULFATE 75 MG TABLET PO SCH (08:09)
[2016-09-08] MEDS: RIFAMPIN 150 MG CAPSULE PO SCH (08:10)
[2016-09-08] MEDS: ISONIAZID 100 MG TABLET PO SCH (08:10)
[2016-09-08] MEDS: PYRIDOXINE HCL 50 MG TABLET PO SCH (08:12)
[2016-09-08] MEDS: ETHAMBUTOL HCL 400 MG TABLET PO SCH (08:12)
[2016-09-08] MEDS: PYRAZINAMIDE 500 MG TABLET PO SCH (08:12)
[2016-09-08] MEDS: MEGESTROL ACETATE 400 MG/10 ML SUSPENSION UDCUP PO SCH ×2 (08:17→20:50)
[2016-09-08] MEDS: HYDROCHLOROTHIAZIDE 25 MG TABLET PO SCH (08:17)
[2016-09-08] MEDS: ASPIRIN 81 MG EC TABLET PO SCH (08:17)
[2016-09-08] MEDS: FERROUS SULFATE 325 MG EC TABLET PO SCH (08:19)
[2016-09-08] MEDS: MetFORMIN HCL 500 MG TABLET PO SCH ×2 (08:20→18:21)
[2016-09-08 09:02] LABS: GLUCOSE,POINT OF CARE 86 MG/DL (70-110)
[2016-09-08] MEDS: MAGNESIUM OXIDE 400 MG TABLET PO PRN ×3 (10:25→20:49)
[2016-09-08 11:34] VITALS: BP 104/63
[2016-09-08 11:38] LABS: GLUCOSE,POINT OF CARE 118 MG/DL (70-110)
[2016-09-08] MEDS: ONDANSETRON HCL 4 MG/2 ML VIAL IVP PRN (12:17)
[2016-09-08 18:19] LABS: GLUCOSE,POINT OF CARE 95 MG/DL (70-110)
[2016-09-08] MEDS ORDERED: LOPERAMIDE HCL 2 MG CAPSULE PO PRN (19:30)
[2016-09-08 19:38] VITALS: BP 105/55
[2016-09-08] MEDS: PANTOPRAZOLE SODIUM 40 MG DR TABLET PO SCH (20:49)
[2016-09-08] MEDS: ATORVASTATIN CALCIUM 10 MG TABLET PO SCH (20:49)
[2016-09-08] MEDS: LACTOBACILLUS ACIDOPHILUS/BULGARICUS TABLET PO SCH (20:50)
[2016-09-08] MEDS: LOPERAMIDE HCL 2 MG CAPSULE PO PRN (20:57)
[2016-09-08] MEDS: INSULIN DETEMIR 100 UNITS/ML SQ SCH (20:59)
[2016-09-09] VITALS (7 sets, daily range): BP systolic 95–125; BP diastolic 49–62
[2016-09-09 01:02] LABS: GLUCOSE COMMENT 1 Juice/Food/D50 Given; GLUCOSE,POINT OF CARE 70 MG/DL (70-110)
[2016-09-09] MEDS: CILOSTAZOL 100 MG TABLET PO SCH (05:52)
[2016-09-09 05:56] LABS: GLUCOSE,POINT OF CARE 78 MG/DL (70-110)
[2016-09-09 06:14] LABS: BASOPHILS % (AUTO) 0.4 % (0.0-2.0); EOSINOPHILS % (AUTO) 2.1 % (1.0-6.0); HEMATOCRIT 35.5 % (41-53); HEMOGLOBIN 11.3 g/dL (13.5-17.5); LYMPHOCYTES # (AUTO) 2.4 K/uL (1.0-4.8); LYMPHOCYTES % (AUTO) 22.8 % (22.0-44.0); MEAN CORPUSCULAR HEMOGLOBIN 27.1 pg (26.0-34.0); MEAN CORPUSCULAR HGB CONC 31.9 G/dL (31.0-37.0); MEAN CORPUSCULAR VOLUME 85 fL (80-100); MONOCYTES # (AUTO) 0.5 K/uL (0.1-1.0); MONOCYTES % (AUTO) 4.8 % (2.0-9.0); NEUTROPHILS # (AUTO) 7.3 K/uL (1.8-7.7); NEUTROPHILS % (AUTO) 69.9 % (40.0-70.0); PLATELET COUNT (AUTO) 533 K/uL (150-450); RED BLOOD CELL COUNT(AUTO) 4.18 MIL/uL (4.50-5.90); WHITE BLOOD COUNT (AUTO) 10.5 K/uL (4.5-11.0)
[2016-09-09 06:28] LABS: ANION GAP 9 mmol/L (8-16); CARBON DIOXIDE 26 mmol/L (22-29); CHLORIDE 97 mmol/L (98-107); CREATININE 0.98 mg/dL (0.60-1.30); GLOMERULAR FILTR. RATE CALC > 60 mL/min (>60); POTASSIUM 5.4 mmol/L (3.5-5.1); SODIUM SERUM 132 mmol/L (136-145); UREA NITROGEN, BLOOD 24 mg/dL (7-18)
[2016-09-09] MEDS: MEGESTROL ACETATE 400 MG/10 ML SUSPENSION UDCUP PO SCH ×2 (07:40→20:06)
[2016-09-09] MEDS: MetFORMIN HCL 500 MG TABLET PO SCH ×2 (07:41→17:20)
[2016-09-09] MEDS: ETHAMBUTOL HCL 400 MG TABLET PO SCH (07:41)
[2016-09-09] MEDS: FERROUS SULFATE 325 MG EC TABLET PO SCH (07:41)
[2016-09-09] MEDS: RIFAMPIN 150 MG CAPSULE PO SCH (07:41)
[2016-09-09] MEDS: LACTOBACILLUS ACIDOPHILUS/BULGARICUS TABLET PO SCH ×2 (07:41→20:06)
[2016-09-09] MEDS: CLOPIDOGREL BISULFATE 75 MG TABLET PO SCH (07:41)
[2016-09-09] MEDS: HYDROCHLOROTHIAZIDE 25 MG TABLET PO SCH (07:42)
[2016-09-09] MEDS: ASPIRIN 81 MG EC TABLET PO SCH (07:42)
[2016-09-09] MEDS: PYRAZINAMIDE 500 MG TABLET PO SCH (07:42)
[2016-09-09] MEDS: ISONIAZID 100 MG TABLET PO SCH (07:43)
[2016-09-09] MEDS: PYRIDOXINE HCL 50 MG TABLET PO SCH (07:48)
[2016-09-09 11:52] LABS: GLUCOSE,POINT OF CARE 98 MG/DL (70-110)
[2016-09-09 18:16] LABS: GLUCOSE,POINT OF CARE 82 MG/DL (70-110)
[2016-09-09] MEDS: LOPERAMIDE HCL 2 MG CAPSULE PO PRN (18:36)
[2016-09-09] MEDS: PANTOPRAZOLE SODIUM 40 MG DR TABLET PO SCH (20:06)
[2016-09-09] MEDS: ATORVASTATIN CALCIUM 10 MG TABLET PO SCH (20:06)
[2016-09-09] MEDS: INSULIN DETEMIR 100 UNITS/ML SQ SCH (21:00)
[2016-09-10 04:24] VITALS: BP 116/57
[2016-09-10] MEDS: CILOSTAZOL 100 MG TABLET PO SCH (06:09)
[2016-09-10] MEDS: LOPERAMIDE HCL 2 MG CAPSULE PO PRN (06:10)
[2016-09-10 06:43] LABS: GLUCOSE,POINT OF CARE 81 MG/DL (70-110)
[2016-09-10 07:14] VITALS: BP 115/68
[2016-09-10 07:30] LABS: ALBUMIN 2.9 g/dL (3.4-5.0); ANION GAP 12 mmol/L (8-16); CARBON DIOXIDE 24 mmol/L (22-29); CHLORIDE 97 mmol/L (98-107); CREATININE 0.89 mg/dL (0.60-1.30); GLOMERULAR FILTR. RATE CALC > 60 mL/min (>60); POTASSIUM 5.9 mmol/L (3.5-5.1); SODIUM SERUM 133 mmol/L (136-145); UREA NITROGEN, BLOOD 24 mg/dL (7-18)
[2016-09-10 07:32] LABS: GLUCOSE,POINT OF CARE 80 MG/DL (70-110)
[2016-09-10] MEDS: FERROUS SULFATE 325 MG EC TABLET PO SCH (07:53)
[2016-09-10] MEDS: MetFORMIN HCL 500 MG TABLET PO SCH ×2 (07:53→17:10)
[2016-09-10] MEDS: CLOPIDOGREL BISULFATE 75 MG TABLET PO SCH (07:53)
[2016-09-10] MEDS: ASPIRIN 81 MG EC TABLET PO SCH (07:53)
[2016-09-10] MEDS: HYDROCHLOROTHIAZIDE 25 MG TABLET PO SCH (07:53)
[2016-09-10] MEDS: MEGESTROL ACETATE 400 MG/10 ML SUSPENSION UDCUP PO SCH ×2 (07:54→20:44)
[2016-09-10] MEDS: PYRIDOXINE HCL 50 MG TABLET PO SCH (07:54)
[2016-09-10] MEDS: PYRAZINAMIDE 500 MG TABLET PO SCH (07:54)
[2016-09-10] MEDS: LACTOBACILLUS ACIDOPHILUS/BULGARICUS TABLET PO SCH ×2 (07:54→20:44)
[2016-09-10] MEDS: ETHAMBUTOL HCL 400 MG TABLET PO SCH (07:54)
[2016-09-10] MEDS: RIFAMPIN 150 MG CAPSULE PO SCH (07:54)
[2016-09-10] MEDS: ISONIAZID 100 MG TABLET PO SCH (07:55)
[2016-09-10 11:22] LABS: GLUCOSE,POINT OF CARE 99 MG/DL (70-110)
[2016-09-10 11:51] VITALS: BP 108/59
[2016-09-10] MEDS ORDERED: SODIUM POLYSTYRENE SULFONATE 15 GM/60 ML SUSPENSION BOTTLE PO ONE (16:30)
[2016-09-10 16:40] VITALS: BP 100/63
[2016-09-10 17:23] LABS: GLUCOSE,POINT OF CARE 100 MG/DL (70-110)
[2016-09-10 19:28] VITALS: BP 104/55
[2016-09-10] MEDS: ATORVASTATIN CALCIUM 10 MG TABLET PO SCH (20:44)
[2016-09-10] MEDS: PANTOPRAZOLE SODIUM 40 MG DR TABLET PO SCH (20:44)
[2016-09-10 23:24] VITALS: BP 103/56
[2016-09-11] VITALS (7 sets, daily range): BP systolic 94–152; BP diastolic 51–73
[2016-09-11 05:22] LABS: GLUCOSE COMMENT 1 Received Meds; GLUCOSE,POINT OF CARE 160 MG/DL (70-110)
[2016-09-11 05:22] LABS: GLUCOSE,POINT OF CARE 104 MG/DL (70-110)
[2016-09-11] MEDS: CILOSTAZOL 100 MG TABLET PO SCH (06:20)
[2016-09-11] MEDS: INSULIN ASPART 100 UNITS/ML SQ PRN ×3 (06:21→17:47)
[2016-09-11 06:29] LABS: ALBUMIN 3.2 g/dL (3.4-5.0); CALCIUM, TOTAL 9.4 mg/dL (8.8-10.5); CREATININE 1.5 mg/dL (0.60-1.30); POTASSIUM 4.8 mmol/L (3.5-5.1)
[2016-09-11] MEDS: MetFORMIN HCL 500 MG TABLET PO SCH ×2 (08:22→17:47)
[2016-09-11] MEDS: MEGESTROL ACETATE 400 MG/10 ML SUSPENSION UDCUP PO SCH ×2 (08:22→20:19)
[2016-09-11] MEDS: HYDROCHLOROTHIAZIDE 25 MG TABLET PO SCH (08:22)
[2016-09-11] MEDS: FERROUS SULFATE 325 MG EC TABLET PO SCH (08:22)
[2016-09-11] MEDS: CLOPIDOGREL BISULFATE 75 MG TABLET PO SCH (08:22)
[2016-09-11] MEDS: LACTOBACILLUS ACIDOPHILUS/BULGARICUS TABLET PO SCH ×2 (08:23→20:19)
[2016-09-11] MEDS: ETHAMBUTOL HCL 400 MG TABLET PO SCH (08:23)
[2016-09-11] MEDS: PYRAZINAMIDE 500 MG TABLET PO SCH (08:23)
[2016-09-11] MEDS: PANTOPRAZOLE SODIUM 40 MG DR TABLET PO SCH ×2 (08:23→20:19)
[2016-09-11] MEDS: RIFAMPIN 150 MG CAPSULE PO SCH (08:23)
[2016-09-11] MEDS: PYRIDOXINE HCL 50 MG TABLET PO SCH (08:23)
[2016-09-11] MEDS: ASPIRIN 81 MG EC TABLET PO SCH (08:28)
[2016-09-11] MEDS: ISONIAZID 100 MG TABLET PO SCH (09:50)
[2016-09-11] MEDS: ONDANSETRON HCL 4 MG/2 ML VIAL IVP PRN (12:04)
[2016-09-11 14:16] LABS: GLUCOSE COMMENT 1 Received Meds; GLUCOSE,POINT OF CARE 159 MG/DL (70-110)
[2016-09-11 18:57] LABS: GLUCOSE COMMENT 1 Received Meds; GLUCOSE,POINT OF CARE 150 MG/DL (70-110)
[2016-09-11] MEDS: ATORVASTATIN CALCIUM 10 MG TABLET PO SCH (20:19)
[2016-09-11 20:38] LABS: GLUCOSE,POINT OF CARE 82 MG/DL (70-110)
[2016-09-12 05:13] VITALS: BP 111/59
[2016-09-12 05:23] LABS: GLUCOSE,POINT OF CARE 97 MG/DL (70-110)
[2016-09-12] MEDS: CILOSTAZOL 100 MG TABLET PO SCH (06:17)
[2016-09-12 06:59] VITALS: BP 120/59
[2016-09-12 07:04] LABS: BASOPHILS # (AUTO) 0.02 K/uL (0.00-0.20); BASOPHILS % (AUTO) 0.2 % (0.0-2.0); EOSINOPHILS # (AUTO) 0.04 K/uL (0.00-0.70); EOSINOPHILS % (AUTO) 0.37 % (1.0-6.0); HEMATOCRIT 34.4 % (41-53); HEMOGLOBIN 11.5 g/dL (13.5-17.5); LYMPHOCYTES # (AUTO) 1.3 K/uL (1.0-4.8); LYMPHOCYTES % (AUTO) 12.5 % (22.0-44.0); MEAN CORPUSCULAR HEMOGLOBIN 27.8 pg (26.0-34.0); MEAN CORPUSCULAR HGB CONC 33.4 G/dL (31.0-37.0); MEAN CORPUSCULAR VOLUME 83 fL (80-100); MONOCYTES # (AUTO) 0.4 K/uL (0.1-1.0); MONOCYTES % (AUTO) 3.9 % (2.0-9.0); NEUTROPHILS # (AUTO) 8.6 K/uL (1.8-7.7); NEUTROPHILS % (AUTO) 83.1 % (40.0-70.0); PLATELET COUNT (AUTO) 409 K/uL (150-450); RED BLOOD CELL COUNT(AUTO) 4.12 MIL/uL (4.50-5.90); RED CELL DISTRIBUTION WIDTH 17.4 % (11.5-14.5); WHITE BLOOD COUNT (AUTO) 10.4 K/uL (4.5-11.0)
[2016-09-12 07:13] LABS: ALBUMIN 2.8 g/dL (3.4-5.0); BILIRUBIN,TOTAL 0.3 mg/dL (0.1-1.0); CALCIUM, TOTAL 8.5 mg/dL (8.8-10.5); CREATININE 2.48 mg/dL (0.60-1.30); POTASSIUM 4.4 mmol/L (3.5-5.1); TOTAL PROTEIN, SERUM 6.3 g/dL (6.4-8.2)
[2016-09-12] MEDS: MEGESTROL ACETATE 400 MG/10 ML SUSPENSION UDCUP PO SCH ×2 (08:59→20:00)
[2016-09-12] MEDS: FERROUS SULFATE 325 MG EC TABLET PO SCH (08:59)
[2016-09-12] MEDS: CLOPIDOGREL BISULFATE 75 MG TABLET PO SCH (09:00)
[2016-09-12] MEDS: HYDROCHLOROTHIAZIDE 25 MG TABLET PO SCH (09:00)
[2016-09-12] MEDS: MetFORMIN HCL 500 MG TABLET PO SCH ×2 (09:00→17:21)
[2016-09-12] MEDS: ASPIRIN 81 MG EC TABLET PO SCH (09:00)
[2016-09-12] MEDS: ISONIAZID 100 MG TABLET PO SCH (09:01)
[2016-09-12] MEDS: LACTOBACILLUS ACIDOPHILUS/BULGARICUS TABLET PO SCH ×2 (09:02→21:06)
[2016-09-12] MEDS: PYRAZINAMIDE 500 MG TABLET PO SCH (09:03)
[2016-09-12] MEDS: RIFAMPIN 150 MG CAPSULE PO SCH (09:03)
[2016-09-12] MEDS: ETHAMBUTOL HCL 400 MG TABLET PO SCH (09:03)
[2016-09-12] MEDS: PYRIDOXINE HCL 50 MG TABLET PO SCH (09:03)
[2016-09-12] MEDS ORDERED: SODIUM CHLORIDE 3% 15 ML NEB SOLUTION NEB ONE (10:08)
[2016-09-12 11:57] VITALS: BP 97/51
[2016-09-12] MEDS: INSULIN ASPART 100 UNITS/ML SQ PRN (12:41)
[2016-09-12 13:17] LABS: GLUCOSE,POINT OF CARE 141 MG/DL (70-110)
[2016-09-12 15:12] VITALS: BP 100/53
[2016-09-12] MEDS ORDERED: SODIUM CHLORIDE 0.9% 250 ML IV ONE (15:30)
[2016-09-12] MEDS ORDERED: SODIUM CHLORIDE 0.9% 500 ML IV ONE (15:42)
[2016-09-12] MEDS: SODIUM CHLORIDE 0.45% 1,000 ML IV SCH (17:22)
[2016-09-12 17:38] LABS: GLUCOSE,POINT OF CARE 79 MG/DL (70-110)
[2016-09-12] MEDS: ATORVASTATIN CALCIUM 10 MG TABLET PO SCH (19:59)
[2016-09-12] MEDS: PANTOPRAZOLE SODIUM 40 MG DR TABLET PO SCH (19:59)
[2016-09-12 20:41] VITALS: BP 99/50
[2016-09-12 21:12] LABS: GLUCOSE,POINT OF CARE 94 MG/DL (70-110)
[2016-09-12 23:50] VITALS: BP 98/55
[2016-09-13 05:36] VITALS: BP 101/51
[2016-09-13] MEDS: CILOSTAZOL 100 MG TABLET PO SCH (05:56)
[2016-09-13] MEDS: SODIUM CHLORIDE 0.45% 1,000 ML IV SCH ×2 (05:56→21:56)
[2016-09-13 06:17] LABS: GLUCOSE,POINT OF CARE 76 MG/DL (70-110)
[2016-09-13 06:46] LABS: BASOPHILS # (AUTO) 0.03 K/uL (0.00-0.20); BASOPHILS % (AUTO) 0.3 % (0.0-2.0); EOSINOPHILS # (AUTO) 0.06 K/uL (0.00-0.70); EOSINOPHILS % (AUTO) 0.55 % (1.0-6.0); HEMATOCRIT 33.2 % (41-53); HEMOGLOBIN 10.9 g/dL (13.5-17.5); LYMPHOCYTES # (AUTO) 1.3 K/uL (1.0-4.8); LYMPHOCYTES % (AUTO) 11.9 % (22.0-44.0); MEAN CORPUSCULAR HEMOGLOBIN 27.7 pg (26.0-34.0); MEAN CORPUSCULAR HGB CONC 32.8 G/dL (31.0-37.0); MEAN CORPUSCULAR VOLUME 85 fL (80-100); MONOCYTES # (AUTO) 0.4 K/uL (0.1-1.0); NEUTROPHILS # (AUTO) 9.1 K/uL (1.8-7.7); NEUTROPHILS % (AUTO) 83.2 % (40.0-70.0); PLATELET COUNT (AUTO) 350 K/uL (150-450); RED BLOOD CELL COUNT(AUTO) 3.92 MIL/uL (4.50-5.90); RED CELL DISTRIBUTION WIDTH 17.7 % (11.5-14.5)
[2016-09-13 07:31] LABS: CREATININE 1.71 mg/dL (0.60-1.30); MAGNESIUM 1.5 mg/dL (1.80-2.40); POTASSIUM 4.7 mmol/L (3.5-5.1)
[2016-09-13] MEDS: PYRIDOXINE HCL 50 MG TABLET PO SCH (08:22)
[2016-09-13] MEDS: CLOPIDOGREL BISULFATE 75 MG TABLET PO SCH (08:22)
[2016-09-13] MEDS: HYDROCHLOROTHIAZIDE 25 MG TABLET PO SCH (08:22)
[2016-09-13] MEDS: ASPIRIN 81 MG EC TABLET PO SCH (08:22)
[2016-09-13] MEDS: ETHAMBUTOL HCL 400 MG TABLET PO SCH (08:22)
[2016-09-13] MEDS: FERROUS SULFATE 325 MG EC TABLET PO SCH (08:22)
[2016-09-13] MEDS: LACTOBACILLUS ACIDOPHILUS/BULGARICUS TABLET PO SCH ×2 (08:22→20:35)
[2016-09-13] MEDS: RIFAMPIN 150 MG CAPSULE PO SCH (08:23)
[2016-09-13] MEDS: PYRAZINAMIDE 500 MG TABLET PO SCH (08:23)
[2016-09-13] MEDS: MEGESTROL ACETATE 400 MG/10 ML SUSPENSION UDCUP PO SCH ×2 (08:23→20:35)
[2016-09-13] MEDS: ISONIAZID 100 MG TABLET PO SCH (08:24)
[2016-09-13 08:45] VITALS: BP 122/80
[2016-09-13 10:21] LABS: RBC MORPHOLOGY COMMENT ABNORMAL RBC MORPH
[2016-09-13 12:07] LABS: GLUCOSE,POINT OF CARE 85 MG/DL (70-110)
[2016-09-13 12:10] VITALS: BP 107/38
[2016-09-13] MEDS ORDERED: MAGNESIUM SULFATE 3 GM in DEXTROSE 5%-WATER 100 ML IV ONE (14:30)
[2016-09-13 15:16] VITALS: BP 111/53
[2016-09-13 19:34] LABS: GLUCOSE,POINT OF CARE 118 MG/DL (70-110)
[2016-09-13 20:04] VITALS: BP 95/53
[2016-09-13] MEDS: ATORVASTATIN CALCIUM 10 MG TABLET PO SCH (20:35)
[2016-09-13] MEDS: PANTOPRAZOLE SODIUM 40 MG DR TABLET PO SCH (20:35)
[2016-09-13] MEDS ORDERED: SODIUM CHLORIDE 3% 15 ML NEB SOLUTION NEB ONE (21:37)
[2016-09-14] VITALS (7 sets, daily range): BP systolic 98–112; BP diastolic 46–62
[2016-09-14 00:42] LABS: GLUCOSE,POINT OF CARE 108 MG/DL (70-110)
[2016-09-14] MEDS: CILOSTAZOL 100 MG TABLET PO SCH (06:00)
[2016-09-14 06:07] LABS: GLUCOSE,POINT OF CARE 97 MG/DL (70-110)
[2016-09-14 06:11] LABS: ANION GAP 10 mmol/L (8-16); CALCIUM, TOTAL 8.3 mg/dL (8.8-10.5); CARBON DIOXIDE 24 mmol/L (22-29); CHLORIDE 98 mmol/L (98-107); CREATININE 1.08 mg/dL (0.60-1.30); GLOMERULAR FILTR. RATE CALC > 60 mL/min (>60); POTASSIUM 4.5 mmol/L (3.5-5.1); SODIUM SERUM 132 mmol/L (136-145); UREA NITROGEN, BLOOD 25 mg/dL (7-18)
[2016-09-14] MEDS: FERROUS SULFATE 325 MG EC TABLET PO SCH (08:33)
[2016-09-14] MEDS: ASPIRIN 81 MG EC TABLET PO SCH (08:34)
[2016-09-14] MEDS: PYRIDOXINE HCL 50 MG TABLET PO SCH (08:34)
[2016-09-14] MEDS: CLOPIDOGREL BISULFATE 75 MG TABLET PO SCH (08:34)
[2016-09-14] MEDS: LACTOBACILLUS ACIDOPHILUS/BULGARICUS TABLET PO SCH ×2 (08:34→20:34)
[2016-09-14] MEDS: HYDROCHLOROTHIAZIDE 25 MG TABLET PO SCH (08:34)
[2016-09-14] MEDS: ISONIAZID 100 MG TABLET PO SCH (08:35)
[2016-09-14] MEDS: MEGESTROL ACETATE 400 MG/10 ML SUSPENSION UDCUP PO SCH ×2 (08:35→20:35)
[2016-09-14] MEDS: RIFAMPIN 150 MG CAPSULE PO SCH (08:38)
[2016-09-14] MEDS: SODIUM CHLORIDE 0.45% 1,000 ML IV SCH (12:17)
[2016-09-14] MEDS: INSULIN ASPART 100 UNITS/ML SQ PRN ×2 (12:19→17:40)
[2016-09-14 14:02] LABS: GLUCOSE COMMENT 1 Received Meds; GLUCOSE,POINT OF CARE 173 MG/DL (70-110)
[2016-09-14 19:47] LABS: GLUCOSE COMMENT 1 Received Meds; GLUCOSE,POINT OF CARE 147 MG/DL (70-110)
[2016-09-14] MEDS: PANTOPRAZOLE SODIUM 40 MG DR TABLET PO SCH (20:34)
[2016-09-14] MEDS: ATORVASTATIN CALCIUM 10 MG TABLET PO SCH (20:34)
[2016-09-14 20:43] LABS: GLUCOSE,POINT OF CARE 79 MG/DL (70-110)
[2016-09-15] MEDS: SODIUM CHLORIDE 0.45% 1,000 ML IV SCH ×2 (02:40→17:09)
[2016-09-15 04:00] VITALS: BP 94/53
[2016-09-15] MEDS ORDERED: SODIUM CHLORIDE 3% 15 ML NEB SOLUTION NEB ONE (05:40)
[2016-09-15] MEDS ORDERED: 0.9% SODIUM CHLORIDE 5 ML NEB SOLUTION NEB ONE (05:44)
[2016-09-15] MEDS: CILOSTAZOL 100 MG TABLET PO SCH (05:47)
[2016-09-15] MEDS: INSULIN ASPART 100 UNITS/ML SQ PRN ×3 (05:49→17:18)
[2016-09-15 05:52] LABS: GLUCOSE COMMENT 1 Received Meds; GLUCOSE,POINT OF CARE 175 MG/DL (70-110)
[2016-09-15 06:48] LABS: ALANINE AMINOTRANSFERASE 67 U/L (12-78); ALBUMIN 2.3 g/dL (3.4-5.0); ANION GAP 13 mmol/L (8-16); ASPARTATE AMINOTRANSFERASE 130 U/L (15-37); BILIRUBIN,TOTAL 0.7 mg/dL (0.1-1.0); CALCIUM, TOTAL 7.7 mg/dL (8.8-10.5); CARBON DIOXIDE 22 mmol/L (22-29); CHLORIDE 97 mmol/L (98-107); CREATININE 0.91 mg/dL (0.60-1.30); GLOMERULAR FILTR. RATE CALC > 60 mL/min (>60); POTASSIUM 3.3 mmol/L (3.5-5.1); SODIUM SERUM 132 mmol/L (136-145); TOTAL PROTEIN, SERUM 5.3 g/dL (6.4-8.2); UREA NITROGEN, BLOOD 19 mg/dL (7-18)
[2016-09-15 07:57] VITALS: BP 105/52
[2016-09-15] MEDS: ASPIRIN 81 MG EC TABLET PO SCH (08:13)
[2016-09-15] MEDS: ISONIAZID 100 MG TABLET PO SCH (08:13)
[2016-09-15] MEDS: MEGESTROL ACETATE 400 MG/10 ML SUSPENSION UDCUP PO SCH ×2 (08:13→20:43)
[2016-09-15] MEDS: RIFAMPIN 150 MG CAPSULE PO SCH (08:13)
[2016-09-15] MEDS: HYDROCHLOROTHIAZIDE 25 MG TABLET PO SCH (08:13)
[2016-09-15] MEDS: FERROUS SULFATE 325 MG EC TABLET PO SCH (08:13)
[2016-09-15] MEDS: LACTOBACILLUS ACIDOPHILUS/BULGARICUS TABLET PO SCH ×2 (08:14→20:42)
[2016-09-15] MEDS: CLOPIDOGREL BISULFATE 75 MG TABLET PO SCH (08:14)
[2016-09-15] MEDS: PYRIDOXINE HCL 50 MG TABLET PO SCH (08:14)
[2016-09-15] MEDS ORDERED: PYRAZINAMIDE 500 MG TABLET PO ONE (09:00)
[2016-09-15] MEDS ORDERED: ETHAMBUTOL HCL 400 MG TABLET PO ONE (09:00)
[2016-09-15 11:44] VITALS: BP 100/51
[2016-09-15 11:52] LABS: GLUCOSE COMMENT 1 Received Meds; GLUCOSE,POINT OF CARE 207 MG/DL (70-110)
[2016-09-15] MEDS ORDERED: POTASSIUM CHLORIDE 20 MEQ ER TABLET PO ONE (13:00)
[2016-09-15 15:38] VITALS: BP 143/69
[2016-09-15 17:23] LABS: GLUCOSE COMMENT 1 Received Meds; GLUCOSE,POINT OF CARE 197 MG/DL (70-110)
[2016-09-15 19:57] VITALS: BP 102/48
[2016-09-15] MEDS: PANTOPRAZOLE SODIUM 40 MG DR TABLET PO SCH (20:42)
[2016-09-15] MEDS: ATORVASTATIN CALCIUM 10 MG TABLET PO SCH (20:42)
[2016-09-15 20:53] LABS: GLUCOSE,POINT OF CARE 89 MG/DL (70-110)
[2016-09-16] VITALS (8 sets, daily range): BP systolic 21–121; BP diastolic 47–83
[2016-09-16] MEDS: CILOSTAZOL 100 MG TABLET PO SCH (05:36)
[2016-09-16 06:02] LABS: GLUCOSE,POINT OF CARE 118 MG/DL (70-110)
[2016-09-16 07:18] LABS: ALANINE AMINOTRANSFERASE 84 U/L (12-78); ALBUMIN 2.3 g/dL (3.4-5.0); ANION GAP 11 mmol/L (8-16); ASPARTATE AMINOTRANSFERASE 160 U/L (15-37); BILIRUBIN,TOTAL 0.6 mg/dL (0.1-1.0); CALCIUM, TOTAL 7.8 mg/dL (8.8-10.5); CARBON DIOXIDE 24 mmol/L (22-29); CHLORIDE 97 mmol/L (98-107); CREATININE 0.72 mg/dL (0.60-1.30); GLOMERULAR FILTR. RATE CALC > 60 mL/min (>60); POTASSIUM 3.1 mmol/L (3.5-5.1); SODIUM SERUM 132 mmol/L (136-145); TOTAL PROTEIN, SERUM 5.2 g/dL (6.4-8.2); UREA NITROGEN, BLOOD 13 mg/dL (7-18)
[2016-09-16] MEDS: ISONIAZID 100 MG TABLET PO SCH (09:00)
[2016-09-16] MEDS: RIFAMPIN 150 MG CAPSULE PO SCH (09:00)
[2016-09-16] MEDS: MEGESTROL ACETATE 400 MG/10 ML SUSPENSION UDCUP PO SCH ×2 (09:04→20:39)
[2016-09-16] MEDS: ASPIRIN 81 MG EC TABLET PO SCH (09:04)
[2016-09-16] MEDS: FERROUS SULFATE 325 MG EC TABLET PO SCH (09:04)
[2016-09-16] MEDS: LACTOBACILLUS ACIDOPHILUS/BULGARICUS TABLET PO SCH ×2 (09:04→20:40)
[2016-09-16] MEDS: PYRIDOXINE HCL 50 MG TABLET PO SCH (09:04)
[2016-09-16] MEDS: CLOPIDOGREL BISULFATE 75 MG TABLET PO SCH (09:05)
[2016-09-16] MEDS: HYDROCHLOROTHIAZIDE 25 MG TABLET PO SCH (09:05)
[2016-09-16] MEDS: SODIUM CHLORIDE 0.45% 1,000 ML IV SCH ×2 (09:24→20:40)
[2016-09-16] MEDS: POTASSIUM CHLORIDE 20 MEQ ER TABLET PO PRN (11:00)
[2016-09-16 11:33] LABS: GLUCOSE,POINT OF CARE 150 MG/DL (70-110)
[2016-09-16] MEDS: INSULIN ASPART 100 UNITS/ML SQ PRN ×3 (11:56→20:40)
[2016-09-16 17:27] LABS: GLUCOSE COMMENT 1 Received Meds; GLUCOSE,POINT OF CARE 297 MG/DL (70-110)
[2016-09-16] MEDS: PANTOPRAZOLE SODIUM 40 MG DR TABLET PO SCH (20:39)
[2016-09-16] MEDS: ATORVASTATIN CALCIUM 10 MG TABLET PO SCH (20:39)
[2016-09-17 04:36] VITALS: BP 99/47
[2016-09-17] MEDS: CILOSTAZOL 100 MG TABLET PO SCH (06:30)
[2016-09-17 06:45] LABS: BASOPHILS # (AUTO) 0.02 K/uL (0.00-0.20); BASOPHILS % (AUTO) 0.3 % (0.0-2.0); EOSINOPHILS # (AUTO) 0.08 K/uL (0.00-0.70); EOSINOPHILS % (AUTO) 1.17 % (1.0-6.0); HEMATOCRIT 30.2 % (41-53); HEMOGLOBIN 9.8 g/dL (13.5-17.5); LYMPHOCYTES # (AUTO) 0.9 K/uL (1.0-4.8); MEAN CORPUSCULAR HEMOGLOBIN 27.5 pg (26.0-34.0); MEAN CORPUSCULAR HGB CONC 32.6 G/dL (31.0-37.0); MEAN CORPUSCULAR VOLUME 85 fL (80-100); MONOCYTES # (AUTO) 0.4 K/uL (0.1-1.0); MONOCYTES % (AUTO) 5.6 % (2.0-9.0); NEUTROPHILS # (AUTO) 5.2 K/uL (1.8-7.7); PLATELET COUNT (AUTO) 180 K/uL (150-450); RED BLOOD CELL COUNT(AUTO) 3.58 MIL/uL (4.50-5.90); RED CELL DISTRIBUTION WIDTH 17.9 % (11.5-14.5); WHITE BLOOD COUNT (AUTO) 6.5 K/uL (4.5-11.0)
[2016-09-17 07:00] LABS: ALANINE AMINOTRANSFERASE 89 U/L (12-78); ALBUMIN 2.3 g/dL (3.4-5.0); ANION GAP 11 mmol/L (8-16); ASPARTATE AMINOTRANSFERASE 102 U/L (15-37); BILIRUBIN,TOTAL 0.5 mg/dL (0.1-1.0); CALCIUM, TOTAL 7.8 mg/dL (8.8-10.5); CARBON DIOXIDE 25 mmol/L (22-29); CHLORIDE 98 mmol/L (98-107); CREATININE 0.63 mg/dL (0.60-1.30); GLOMERULAR FILTR. RATE CALC > 60 mL/min (>60); POTASSIUM 3.1 mmol/L (3.5-5.1); SODIUM SERUM 134 mmol/L (136-145); TOTAL PROTEIN, SERUM 5.1 g/dL (6.4-8.2); UREA NITROGEN, BLOOD 6 mg/dL (7-18)
[2016-09-17 07:46] LABS: RBC MORPHOLOGY COMMENT ABNORMAL RBC MORPH
[2016-09-17 08:21] VITALS: BP 107/54
[2016-09-17] MEDS: FERROUS SULFATE 325 MG EC TABLET PO SCH (08:51)
[2016-09-17] MEDS: POTASSIUM CHLORIDE 20 MEQ ER TABLET PO PRN (08:51)
[2016-09-17] MEDS: MEGESTROL ACETATE 400 MG/10 ML SUSPENSION UDCUP PO SCH ×2 (08:51→21:03)
[2016-09-17] MEDS: LACTOBACILLUS ACIDOPHILUS/BULGARICUS TABLET PO SCH ×2 (08:52→21:03)
[2016-09-17] MEDS: CLOPIDOGREL BISULFATE 75 MG TABLET PO SCH (08:52)
[2016-09-17] MEDS: ASPIRIN 81 MG EC TABLET PO SCH (08:53)
[2016-09-17] MEDS: HYDROCHLOROTHIAZIDE 25 MG TABLET PO SCH (08:53)
[2016-09-17] MEDS: PYRIDOXINE HCL 50 MG TABLET PO SCH (08:55)
[2016-09-17] MEDS: SODIUM CHLORIDE 0.45% 1,000 ML IV SCH ×2 (09:04→21:06)
[2016-09-17] MEDS: ETHAMBUTOL HCL 400 MG TABLET PO SCH (10:21)
[2016-09-17] MEDS: PYRAZINAMIDE 500 MG TABLET PO SCH (10:21)
[2016-09-17] MEDS: ISONIAZID 100 MG TABLET PO SCH (10:21)
[2016-09-17] MEDS: RIFAMPIN 150 MG CAPSULE PO SCH (10:22)
[2016-09-17 11:57] LABS: GLUCOSE COMMENT 1 Received Meds; GLUCOSE,POINT OF CARE 189 MG/DL (70-110)
[2016-09-17 12:02] LABS: GLUCOSE,POINT OF CARE 151 MG/DL (70-110)
[2016-09-17] MEDS: INSULIN ASPART 100 UNITS/ML SQ PRN ×2 (12:02→21:04)
[2016-09-17 12:13] LABS: GLUCOSE,POINT OF CARE 122 MG/DL (70-110)
[2016-09-17 12:36] VITALS: BP 105/50
[2016-09-17 16:29] VITALS: BP 107/50
[2016-09-17 17:21] LABS: GLUCOSE COMMENT 1 Received Meds; GLUCOSE,POINT OF CARE 174 MG/DL (70-110)
[2016-09-17 19:43] VITALS: BP 109/58
[2016-09-17] MEDS: PANTOPRAZOLE SODIUM 40 MG DR TABLET PO SCH (21:03)
[2016-09-17] MEDS: ATORVASTATIN CALCIUM 10 MG TABLET PO SCH (21:03)
[2016-09-17 21:42] LABS: GLUCOSE,POINT OF CARE 195 MG/DL (70-110)
[2016-09-17 23:49] VITALS: BP 108/54
[2016-09-18 04:57] VITALS: BP 115/56
[2016-09-18] MEDS: CILOSTAZOL 100 MG TABLET PO SCH (05:54)
[2016-09-18 07:23] LABS: ALANINE AMINOTRANSFERASE 80 U/L (12-78); ALBUMIN 2.4 g/dL (3.4-5.0); ANION GAP 9 mmol/L (8-16); ASPARTATE AMINOTRANSFERASE 51 U/L (15-37); BILIRUBIN,TOTAL 0.6 mg/dL (0.1-1.0); CALCIUM, TOTAL 7.8 mg/dL (8.8-10.5); CARBON DIOXIDE 26 mmol/L (22-29); CHLORIDE 95 mmol/L (98-107); GLOMERULAR FILTR. RATE CALC > 60 mL/min (>60); POTASSIUM 4.5 mmol/L (3.5-5.1); SODIUM SERUM 130 mmol/L (136-145); TOTAL PROTEIN, SERUM 5.5 g/dL (6.4-8.2); UREA NITROGEN, BLOOD 5 mg/dL (7-18)
[2016-09-18 08:00] VITALS: BP 112/63
[2016-09-18 08:03] LABS: GLUCOSE,POINT OF CARE 76 MG/DL (70-110)
[2016-09-18] MEDS: CLOPIDOGREL BISULFATE 75 MG TABLET PO SCH (08:51)
[2016-09-18] MEDS: HYDROCHLOROTHIAZIDE 25 MG TABLET PO SCH (08:51)
[2016-09-18] MEDS: FERROUS SULFATE 325 MG EC TABLET PO SCH (08:51)
[2016-09-18] MEDS: PYRIDOXINE HCL 50 MG TABLET PO SCH (08:51)
[2016-09-18] MEDS: ASPIRIN 81 MG EC TABLET PO SCH (08:51)
[2016-09-18] MEDS: MEGESTROL ACETATE 400 MG/10 ML SUSPENSION UDCUP PO SCH ×2 (08:51→20:49)
[2016-09-18] MEDS: LACTOBACILLUS ACIDOPHILUS/BULGARICUS TABLET PO SCH ×2 (08:52→20:49)
[2016-09-18] MEDS: RIFAMPIN 150 MG CAPSULE PO SCH (09:00)
[2016-09-18 10:45] LABS: BASOPHILS # (AUTO) 0.02 K/uL (0.00-0.20); BASOPHILS % (AUTO) 0.2 % (0.0-2.0); EOSINOPHILS # (AUTO) 0.03 K/uL (0.00-0.70); EOSINOPHILS % (AUTO) 0.38 % (1.0-6.0); HEMOGLOBIN 10.4 g/dL (13.5-17.5); LYMPHOCYTES # (AUTO) 0.7 K/uL (1.0-4.8); LYMPHOCYTES % (AUTO) 9.8 % (22.0-44.0); MEAN CORPUSCULAR HEMOGLOBIN 27.6 pg (26.0-34.0); MEAN CORPUSCULAR HGB CONC 32.6 G/dL (31.0-37.0); MEAN CORPUSCULAR VOLUME 85 fL (80-100); MONOCYTES # (AUTO) 0.3 K/uL (0.1-1.0); MONOCYTES % (AUTO) 4.9 % (2.0-9.0); NEUTROPHILS # (AUTO) 5.8 K/uL (1.8-7.7); NEUTROPHILS % (AUTO) 84.7 % (40.0-70.0); PLATELET COUNT (AUTO) 177 K/uL (150-450); RED BLOOD CELL COUNT(AUTO) 3.78 MIL/uL (4.50-5.90); WHITE BLOOD COUNT (AUTO) 6.9 K/uL (4.5-11.0)
[2016-09-18 11:45] VITALS: BP 109/59
[2016-09-18] MEDS: ISONIAZID 100 MG TABLET PO SCH (12:37)
[2016-09-18 14:34] LABS: RBC MORPHOLOGY COMMENT ABNORMAL RBC MORPH
[2016-09-18 15:02] LABS: GLUCOSE,POINT OF CARE 129 MG/DL (70-110)
[2016-09-18 16:43] VITALS: BP 121/55
[2016-09-18 17:37] LABS: GLUCOSE,POINT OF CARE 119 MG/DL (70-110)
[2016-09-18 19:23] VITALS: BP 125/70
[2016-09-18] MEDS: INSULIN ASPART 100 UNITS/ML SQ PRN (20:48)
[2016-09-18] MEDS: ATORVASTATIN CALCIUM 10 MG TABLET PO SCH (20:49)
[2016-09-18] MEDS: SODIUM CHLORIDE 0.45% 1,000 ML IV SCH (20:49)
[2016-09-18] MEDS: PANTOPRAZOLE SODIUM 40 MG DR TABLET PO SCH (20:49)
[2016-09-18 20:57] LABS: GLUCOSE COMMENT 1 Received Meds; GLUCOSE,POINT OF CARE 245 MG/DL (70-110)
[2016-09-18 23:42] VITALS: BP 108/69
[2016-09-19] MEDS: SODIUM CHLORIDE 0.45% 1,000 ML IV SCH ×3 (00:28→17:17)
[2016-09-19 04:24] VITALS: BP 107/50
[2016-09-19] MEDS: CILOSTAZOL 100 MG TABLET PO SCH (06:03)
[2016-09-19 06:23] LABS: BASOPHILS # (AUTO) 0.02 K/uL (0.00-0.20); BASOPHILS % (AUTO) 0.3 % (0.0-2.0); EOSINOPHILS # (AUTO) 0.15 K/uL (0.00-0.70); EOSINOPHILS % (AUTO) 2.66 % (1.0-6.0); HEMATOCRIT 32.9 % (41-53); HEMOGLOBIN 10.9 g/dL (13.5-17.5); LYMPHOCYTES # (AUTO) 0.9 K/uL (1.0-4.8); LYMPHOCYTES % (AUTO) 15.6 % (22.0-44.0); MEAN CORPUSCULAR HEMOGLOBIN 27.9 pg (26.0-34.0); MEAN CORPUSCULAR VOLUME 85 fL (80-100); MONOCYTES # (AUTO) 0.4 K/uL (0.1-1.0); NEUTROPHILS # (AUTO) 4.2 K/uL (1.8-7.7); NEUTROPHILS % (AUTO) 74.5 % (40.0-70.0); PLATELET COUNT (AUTO) 182 K/uL (150-450); RED BLOOD CELL COUNT(AUTO) 3.89 MIL/uL (4.50-5.90); RED CELL DISTRIBUTION WIDTH 17.9 % (11.5-14.5); WHITE BLOOD COUNT (AUTO) 5.6 K/uL (4.5-11.0)
[2016-09-19 06:58] LABS: ALANINE AMINOTRANSFERASE 69 U/L (12-78); ALBUMIN 2.4 g/dL (3.4-5.0); ANION GAP 7 mmol/L (8-16); ASPARTATE AMINOTRANSFERASE 34 U/L (15-37); BILIRUBIN,TOTAL 0.6 mg/dL (0.1-1.0); CALCIUM, TOTAL 7.6 mg/dL (8.8-10.5); CARBON DIOXIDE 28 mmol/L (22-29); CHLORIDE 94 mmol/L (98-107); CREATININE 0.67 mg/dL (0.60-1.30); GLOMERULAR FILTR. RATE CALC > 60 mL/min (>60); POTASSIUM 3.9 mmol/L (3.5-5.1); SODIUM SERUM 129 mmol/L (136-145); TOTAL PROTEIN, SERUM 5.7 g/dL (6.4-8.2); UREA NITROGEN, BLOOD 4 mg/dL (7-18)
[2016-09-19 07:48] LABS: RBC MORPHOLOGY COMMENT ABNORMAL RBC MORPH
[2016-09-19 08:00] VITALS: BP 100/52
[2016-09-19] MEDS: ASPIRIN 81 MG EC TABLET PO SCH (10:03)
[2016-09-19] MEDS: FERROUS SULFATE 325 MG EC TABLET PO SCH (10:03)
[2016-09-19] MEDS: MEGESTROL ACETATE 400 MG/10 ML SUSPENSION UDCUP PO SCH ×2 (10:03→20:55)
[2016-09-19] MEDS: CLOPIDOGREL BISULFATE 75 MG TABLET PO SCH (10:03)
[2016-09-19] MEDS: LACTOBACILLUS ACIDOPHILUS/BULGARICUS TABLET PO SCH ×2 (10:03→20:55)
[2016-09-19] MEDS: HYDROCHLOROTHIAZIDE 25 MG TABLET PO SCH (10:04)
[2016-09-19 11:32] LABS: GLUCOSE,POINT OF CARE 96 MG/DL (70-110)
[2016-09-19 12:07] LABS: GLUCOSE COMMENT 1 Received Meds; GLUCOSE,POINT OF CARE 152 MG/DL (70-110)
[2016-09-19] MEDS: INSULIN ASPART 100 UNITS/ML SQ PRN ×2 (12:13→17:18)
[2016-09-19] MEDS: PYRAZINAMIDE 500 MG TABLET PO SCH (13:55)
[2016-09-19] MEDS: RIFABUTIN 150 MG CAPSULE PO SCH (13:55)
[2016-09-19] MEDS: ETHAMBUTOL HCL 400 MG TABLET PO SCH (13:55)
[2016-09-19] MEDS: PYRIDOXINE HCL 50 MG TABLET PO SCH (13:56)
[2016-09-19] MEDS: ISONIAZID 100 MG TABLET PO SCH (13:56)
[2016-09-19 15:48] VITALS: BP 108/59
[2016-09-19 20:07] LABS: GLUCOSE COMMENT 1 Received Meds; GLUCOSE,POINT OF CARE 220 MG/DL (70-110)
[2016-09-19 20:11] VITALS: BP 97/48
[2016-09-19] MEDS: PANTOPRAZOLE SODIUM 40 MG DR TABLET PO SCH (20:55)
[2016-09-19] MEDS: SODIUM CHLORIDE 0.9% 1,000 ML IV SCH (20:55)
[2016-09-19] MEDS: ATORVASTATIN CALCIUM 10 MG TABLET PO SCH (20:55)
[2016-09-19 21:08] LABS: GLUCOSE,POINT OF CARE 105 MG/DL (70-110)
[2016-09-20] VITALS (8 sets, daily range): BP systolic 90–117; BP diastolic 45–69
[2016-09-20] MEDS: CILOSTAZOL 100 MG TABLET PO SCH (05:37)
[2016-09-20 06:33] LABS: BASOPHILS % (AUTO) 0.3 % (0.0-2.0); EOSINOPHILS % (AUTO) 3.3 % (1.0-6.0); HEMATOCRIT 31.3 % (41-53); LYMPHOCYTES # (AUTO) 0.8 K/uL (1.0-4.8); MEAN CORPUSCULAR HEMOGLOBIN 27.3 pg (26.0-34.0); MEAN CORPUSCULAR VOLUME 85 fL (80-100); MONOCYTES # (AUTO) 0.3 K/uL (0.1-1.0); NEUTROPHILS # (AUTO) 3.7 K/uL (1.8-7.7); NEUTROPHILS % (AUTO) 74.4 % (40.0-70.0); PLATELET COUNT (AUTO) 163 K/uL (150-450); RED BLOOD CELL COUNT(AUTO) 3.67 MIL/uL (4.50-5.90); RED CELL DISTRIBUTION WIDTH 18.2 % (11.5-14.5)
[2016-09-20 07:22] LABS: GLUCOSE,POINT OF CARE 96 MG/DL (70-110)
[2016-09-20] MEDS: CLOPIDOGREL BISULFATE 75 MG TABLET PO SCH (09:09)
[2016-09-20] MEDS: PYRIDOXINE HCL 50 MG TABLET PO SCH (09:09)
[2016-09-20] MEDS: LACTOBACILLUS ACIDOPHILUS/BULGARICUS TABLET PO SCH ×2 (09:09→20:33)
[2016-09-20] MEDS: RIFABUTIN 150 MG CAPSULE PO SCH (09:09)
[2016-09-20] MEDS: FERROUS SULFATE 325 MG EC TABLET PO SCH (09:09)
[2016-09-20] MEDS: ISONIAZID 100 MG TABLET PO SCH (09:09)
[2016-09-20] MEDS: MEGESTROL ACETATE 400 MG/10 ML SUSPENSION UDCUP PO SCH ×2 (09:09→20:33)
[2016-09-20] MEDS: ASPIRIN 81 MG EC TABLET PO SCH (09:09)
[2016-09-20] MEDS: HYDROCHLOROTHIAZIDE 25 MG TABLET PO SCH (09:10)
[2016-09-20] MEDS: SODIUM CHLORIDE 0.9% 1,000 ML IV SCH ×2 (09:13→20:33)
[2016-09-20 11:42] LABS: RBC MORPHOLOGY COMMENT ABNORMAL RBC MORPH
[2016-09-20] MEDS: INSULIN ASPART 100 UNITS/ML SQ PRN ×3 (12:03→20:44)
[2016-09-20 18:07] LABS: GLUCOSE COMMENT 1 Received Meds; GLUCOSE,POINT OF CARE 214 MG/DL (70-110)
[2016-09-20] MEDS ORDERED: MAGNESIUM HYDROXIDE SUSPENSION 30 ML UDCUP PO PRN (19:15)
[2016-09-20 20:16] LABS: GLUCOSE COMMENT 1 Received Meds; GLUCOSE,POINT OF CARE 170 MG/DL (70-110)
[2016-09-20] MEDS: PANTOPRAZOLE SODIUM 40 MG DR TABLET PO SCH (20:33)
[2016-09-20] MEDS: ATORVASTATIN CALCIUM 10 MG TABLET PO SCH (20:33)
[2016-09-21 05:00] VITALS: BP 120/59
[2016-09-21] MEDS: CILOSTAZOL 100 MG TABLET PO SCH (05:22)
[2016-09-21 05:37] LABS: GLUCOSE COMMENT 1 Received Meds; GLUCOSE,POINT OF CARE 187 MG/DL (70-110)
[2016-09-21 06:28] LABS: GLUCOSE,POINT OF CARE 121 MG/DL (70-110)
[2016-09-21 06:34] LABS: BASOPHILS % (AUTO) 0.3 % (0.0-2.0); EOSINOPHILS % (AUTO) 2.4 % (1.0-6.0); HEMATOCRIT 28.9 % (41-53); HEMOGLOBIN 9.3 g/dL (13.5-17.5); LYMPHOCYTES # (AUTO) 0.5 K/uL (1.0-4.8); LYMPHOCYTES % (AUTO) 13.9 % (22.0-44.0); MEAN CORPUSCULAR HEMOGLOBIN 27.2 pg (26.0-34.0); MEAN CORPUSCULAR HGB CONC 32.2 G/dL (31.0-37.0); MEAN CORPUSCULAR VOLUME 85 fL (80-100); MONOCYTES # (AUTO) 0.3 K/uL (0.1-1.0); MONOCYTES % (AUTO) 7.3 % (2.0-9.0); NEUTROPHILS # (AUTO) 2.9 K/uL (1.8-7.7); NEUTROPHILS % (AUTO) 76.1 % (40.0-70.0); PLATELET COUNT (AUTO) 161 K/uL (150-450); RED BLOOD CELL COUNT(AUTO) 3.41 MIL/uL (4.50-5.90); RED CELL DISTRIBUTION WIDTH 18.3 % (11.5-14.5); WHITE BLOOD COUNT (AUTO) 3.8 K/uL (4.5-11.0)
[2016-09-21 06:59] LABS: ANION GAP 9 mmol/L (8-16); CALCIUM, TOTAL 7.5 mg/dL (8.8-10.5); CARBON DIOXIDE 25 mmol/L (22-29); CHLORIDE 98 mmol/L (98-107); CREATININE 0.62 mg/dL (0.60-1.30); GLOMERULAR FILTR. RATE CALC > 60 mL/min (>60); POTASSIUM 4.5 mmol/L (3.5-5.1); SODIUM SERUM 132 mmol/L (136-145); UREA NITROGEN, BLOOD 7 mg/dL (7-18)
[2016-09-21 07:32] VITALS: BP 102/52
[2016-09-21] MEDS: CLOPIDOGREL BISULFATE 75 MG TABLET PO SCH (08:49)
[2016-09-21] MEDS: FERROUS SULFATE 325 MG EC TABLET PO SCH (08:50)
[2016-09-21] MEDS: ASPIRIN 81 MG EC TABLET PO SCH (08:50)
[2016-09-21] MEDS: MEGESTROL ACETATE 400 MG/10 ML SUSPENSION UDCUP PO SCH ×2 (08:50→21:03)
[2016-09-21] MEDS: ETHAMBUTOL HCL 400 MG TABLET PO SCH (08:51)
[2016-09-21] MEDS: PYRAZINAMIDE 500 MG TABLET PO SCH (08:51)
[2016-09-21] MEDS: PYRIDOXINE HCL 50 MG TABLET PO SCH (08:51)
[2016-09-21] MEDS: RIFABUTIN 150 MG CAPSULE PO SCH (08:52)
[2016-09-21] MEDS: LACTOBACILLUS ACIDOPHILUS/BULGARICUS TABLET PO SCH ×2 (08:52→21:02)
[2016-09-21] MEDS: ISONIAZID 100 MG TABLET PO SCH (08:52)
[2016-09-21 08:53] LABS: RBC MORPHOLOGY COMMENT ABNORMAL RBC MORPH
[2016-09-21] MEDS: SODIUM CHLORIDE 0.9% 1,000 ML IV SCH ×2 (08:55→23:09)
[2016-09-21] MEDS: HYDROCHLOROTHIAZIDE 25 MG TABLET PO SCH (09:00)
[2016-09-21 11:42] LABS: GLUCOSE,POINT OF CARE 200 MG/DL (70-110)
[2016-09-21] MEDS: INSULIN ASPART 100 UNITS/ML SQ PRN (11:51)
[2016-09-21 12:30] VITALS: BP 91/45
[2016-09-21 15:20] VITALS: BP 118/61
[2016-09-21 19:38] VITALS: BP 92/44
[2016-09-21] MEDS: ATORVASTATIN CALCIUM 10 MG TABLET PO SCH (21:02)
[2016-09-21] MEDS: PANTOPRAZOLE SODIUM 40 MG DR TABLET PO SCH (21:03)
[2016-09-21 21:17] LABS: GLUCOSE,POINT OF CARE 123 MG/DL (70-110)
[2016-09-21 23:57] VITALS: BP 126/50
[2016-09-22] MEDS: CILOSTAZOL 100 MG TABLET PO SCH (05:20)
[2016-09-22 06:01] VITALS: BP 114/53
[2016-09-22 06:53] LABS: BASOPHILS % (AUTO) 0.5 % (0.0-2.0); EOSINOPHILS % (AUTO) 2.3 % (1.0-6.0); HEMATOCRIT 28.8 % (41-53); HEMOGLOBIN 9.3 g/dL (13.5-17.5); LYMPHOCYTES # (AUTO) 0.5 K/uL (1.0-4.8); LYMPHOCYTES % (AUTO) 15.4 % (22.0-44.0); MEAN CORPUSCULAR HEMOGLOBIN 27.1 pg (26.0-34.0); MEAN CORPUSCULAR HGB CONC 32.3 G/dL (31.0-37.0); MEAN CORPUSCULAR VOLUME 84 fL (80-100); MONOCYTES # (AUTO) 0.2 K/uL (0.1-1.0); MONOCYTES % (AUTO) 7.1 % (2.0-9.0); NEUTROPHILS # (AUTO) 2.6 K/uL (1.8-7.7); NEUTROPHILS % (AUTO) 74.7 % (40.0-70.0); PLATELET COUNT (AUTO) 175 K/uL (150-450); RED BLOOD CELL COUNT(AUTO) 3.44 MIL/uL (4.50-5.90); RED CELL DISTRIBUTION WIDTH 18.6 % (11.5-14.5); WHITE BLOOD COUNT (AUTO) 3.4 K/uL (4.5-11.0)
[2016-09-22 07:39] LABS: ANION GAP 9 mmol/L (8-16); CALCIUM, TOTAL 7.2 mg/dL (8.8-10.5); CARBON DIOXIDE 24 mmol/L (22-29); CHLORIDE 100 mmol/L (98-107); CREATININE 0.61 mg/dL (0.60-1.30); GLOMERULAR FILTR. RATE CALC > 60 mL/min (>60); POTASSIUM 4.4 mmol/L (3.5-5.1); SODIUM SERUM 133 mmol/L (136-145); UREA NITROGEN, BLOOD 8 mg/dL (7-18)
[2016-09-22 08:03] VITALS: BP 117/49
[2016-09-22] MEDS: CLOPIDOGREL BISULFATE 75 MG TABLET PO SCH (08:48)
[2016-09-22] MEDS: ASPIRIN 81 MG EC TABLET PO SCH (08:48)
[2016-09-22] MEDS: FERROUS SULFATE 325 MG EC TABLET PO SCH (08:48)
[2016-09-22] MEDS: PYRIDOXINE HCL 50 MG TABLET PO SCH (08:48)
[2016-09-22] MEDS: LACTOBACILLUS ACIDOPHILUS/BULGARICUS TABLET PO SCH ×2 (08:48→20:37)
[2016-09-22] MEDS: MEGESTROL ACETATE 400 MG/10 ML SUSPENSION UDCUP PO SCH ×2 (08:48→20:37)
[2016-09-22] MEDS: RIFABUTIN 150 MG CAPSULE PO SCH (08:49)
[2016-09-22] MEDS: HYDROCHLOROTHIAZIDE 25 MG TABLET PO SCH (08:49)
[2016-09-22] MEDS: ISONIAZID 100 MG TABLET PO SCH (08:49)
[2016-09-22 11:13] VITALS: BP 102/57
[2016-09-22 15:23] VITALS: BP 95/50
[2016-09-22 20:01] VITALS: BP 95/51
[2016-09-22] MEDS: PANTOPRAZOLE SODIUM 40 MG DR TABLET PO SCH (20:37)
[2016-09-22] MEDS: ATORVASTATIN CALCIUM 10 MG TABLET PO SCH (20:37)
[2016-09-22] MEDS: SODIUM CHLORIDE 0.9% 1,000 ML IV SCH (20:39)
[2016-09-22 23:39] VITALS: BP 102/51
[2016-09-23 04:43] VITALS: BP 108/52
[2016-09-23] MEDS: INSULIN ASPART 100 UNITS/ML SQ PRN ×3 (06:02→18:06)
[2016-09-23] MEDS: CILOSTAZOL 100 MG TABLET PO SCH (06:03)
[2016-09-23 07:45] VITALS: BP 92/44
[2016-09-23 08:21] LABS: BASOPHILS % (AUTO) 0.6 % (0.0-2.0); EOSINOPHILS % (AUTO) 2.4 % (1.0-6.0); HEMATOCRIT 28.6 % (41-53); HEMOGLOBIN 9.1 g/dL (13.5-17.5); LYMPHOCYTES # (AUTO) 0.7 K/uL (1.0-4.8); LYMPHOCYTES % (AUTO) 20.9 % (22.0-44.0); MEAN CORPUSCULAR HEMOGLOBIN 26.9 pg (26.0-34.0); MEAN CORPUSCULAR HGB CONC 31.8 G/dL (31.0-37.0); MEAN CORPUSCULAR VOLUME 84 fL (80-100); MONOCYTES # (AUTO) 0.3 K/uL (0.1-1.0); MONOCYTES % (AUTO) 8.4 % (2.0-9.0); NEUTROPHILS # (AUTO) 2.3 K/uL (1.8-7.7); NEUTROPHILS % (AUTO) 67.7 % (40.0-70.0); PLATELET COUNT (AUTO) 179 K/uL (150-450); RED BLOOD CELL COUNT(AUTO) 3.39 MIL/uL (4.50-5.90); RED CELL DISTRIBUTION WIDTH 18.4 % (11.5-14.5); WHITE BLOOD COUNT (AUTO) 3.5 K/uL (4.5-11.0)
[2016-09-23 08:30] LABS: ANION GAP 7 mmol/L (8-16); CALCIUM, TOTAL 7.3 mg/dL (8.8-10.5); CARBON DIOXIDE 27 mmol/L (22-29); CHLORIDE 101 mmol/L (98-107); CREATININE 0.54 mg/dL (0.60-1.30); GLOMERULAR FILTR. RATE CALC > 60 mL/min (>60); SODIUM SERUM 135 mmol/L (136-145); UREA NITROGEN, BLOOD 5 mg/dL (7-18)
[2016-09-23] MEDS: HYDROCHLOROTHIAZIDE 25 MG TABLET PO SCH (09:00)
[2016-09-23] MEDS: MEGESTROL ACETATE 400 MG/10 ML SUSPENSION UDCUP PO SCH ×2 (09:01→21:11)
[2016-09-23] MEDS: ASPIRIN 81 MG EC TABLET PO SCH (09:02)
[2016-09-23] MEDS: PYRIDOXINE HCL 50 MG TABLET PO SCH (09:02)
[2016-09-23] MEDS: ISONIAZID 100 MG TABLET PO SCH (09:02)
[2016-09-23] MEDS: RIFABUTIN 150 MG CAPSULE PO SCH (09:02)
[2016-09-23] MEDS: FERROUS SULFATE 325 MG EC TABLET PO SCH (09:02)
[2016-09-23] MEDS: CLOPIDOGREL BISULFATE 75 MG TABLET PO SCH (09:02)
[2016-09-23] MEDS: LACTOBACILLUS ACIDOPHILUS/BULGARICUS TABLET PO SCH ×2 (09:03→21:11)
[2016-09-23 11:01] VITALS: BP 120/65
[2016-09-23] MEDS: SODIUM CHLORIDE 0.9% 1,000 ML IV SCH ×2 (12:09→23:42)
[2016-09-23 16:01] VITALS: BP 106/62
[2016-09-23 16:37] LABS: GLUCOSE,POINT OF CARE 205 MG/DL (70-110)
[2016-09-23 17:12] LABS: GLUCOSE,POINT OF CARE 169 MG/DL (70-110)
[2016-09-23 17:22] LABS: GLUCOSE,POINT OF CARE 72 MG/DL (70-110)
[2016-09-23 20:11] VITALS: BP 104/49
[2016-09-23] MEDS: ATORVASTATIN CALCIUM 10 MG TABLET PO SCH (21:11)
[2016-09-23] MEDS: PANTOPRAZOLE SODIUM 40 MG DR TABLET PO SCH (21:11)
[2016-09-23] MEDS ORDERED: ACETAMINOPHEN 650 MG/20.3 ML SOLUTION UDCUP PO PRN (21:30)
[2016-09-23] MEDS ORDERED: ACETAMINOPHEN 325 MG TABLET PO PRN (21:45)
[2016-09-23 23:47] VITALS: BP 102/49
[2016-09-24 04:36] LABS: APPEARANCE,URINE CLEAR (CLEAR); GLUCOSE, URINE (UA) NEGATIVE (NEGATIVE); KETONES,URINE NEGATIVE (NEGATIVE); LEUKOCYTE ESTERASE ,URINE NEGATIVE (NEGATIVE); OCCULT BLOOD,URINE NEGATIVE (NEGATIVE); PROTEIN,URINE NEGATIVE (NEGATIVE)
[2016-09-24 04:37] LABS: RBC,URINE None Seen /HPF (0-2); WBC,URINE None Seen /HPF (0-5)
[2016-09-24 05:29] VITALS: BP 109/54
[2016-09-24] MEDS: CILOSTAZOL 100 MG TABLET PO SCH (05:40)
[2016-09-24 06:17] LABS: BASOPHILS # (AUTO) 0.01 K/uL (0.00-0.20); BASOPHILS % (AUTO) 0.5 % (0.0-2.0); EOSINOPHILS # (AUTO) 0.07 K/uL (0.00-0.70); EOSINOPHILS % (AUTO) 2.46 % (1.0-6.0); HEMATOCRIT 29.1 % (41-53); HEMOGLOBIN 9.5 g/dL (13.5-17.5); LYMPHOCYTES # (AUTO) 0.5 K/uL (1.0-4.8); LYMPHOCYTES % (AUTO) 20.1 % (22.0-44.0); MEAN CORPUSCULAR HEMOGLOBIN 27.3 pg (26.0-34.0); MEAN CORPUSCULAR HGB CONC 32.8 G/dL (31.0-37.0); MEAN CORPUSCULAR VOLUME 83 fL (80-100); MONOCYTES # (AUTO) 0.2 K/uL (0.1-1.0); MONOCYTES % (AUTO) 7.6 % (2.0-9.0); NEUTROPHILS # (AUTO) 1.9 K/uL (1.8-7.7); NEUTROPHILS % (AUTO) 69.3 % (40.0-70.0); PLATELET COUNT (AUTO) 182 K/uL (150-450); RED BLOOD CELL COUNT(AUTO) 3.48 MIL/uL (4.50-5.90); RED CELL DISTRIBUTION WIDTH 19.1 % (11.5-14.5); WHITE BLOOD COUNT (AUTO) 2.7 K/uL (4.5-11.0)
[2016-09-24 06:34] LABS: ALANINE AMINOTRANSFERASE 63 U/L (12-78); ALBUMIN 2.1 g/dL (3.4-5.0); ANION GAP 6 mmol/L (8-16); ASPARTATE AMINOTRANSFERASE 41 U/L (15-37); BILIRUBIN,TOTAL 0.4 mg/dL (0.1-1.0); CALCIUM, TOTAL 7.5 mg/dL (8.8-10.5); CARBON DIOXIDE 27 mmol/L (22-29); CHLORIDE 103 mmol/L (98-107); CREATININE 0.59 mg/dL (0.60-1.30); GLOMERULAR FILTR. RATE CALC > 60 mL/min (>60); POTASSIUM 4.7 mmol/L (3.5-5.1); SODIUM SERUM 136 mmol/L (136-145); UREA NITROGEN, BLOOD 4 mg/dL (7-18)
[2016-09-24 07:16] LABS: GLUCOSE,POINT OF CARE 119 MG/DL (70-110)
[2016-09-24 07:22] VITALS: BP 119/58
[2016-09-24] MEDS: MEGESTROL ACETATE 400 MG/10 ML SUSPENSION UDCUP PO SCH ×2 (08:26→20:45)
[2016-09-24] MEDS: RIFABUTIN 150 MG CAPSULE PO SCH (08:27)
[2016-09-24] MEDS: LACTOBACILLUS ACIDOPHILUS/BULGARICUS TABLET PO SCH ×2 (08:29→20:45)
[2016-09-24] MEDS: HYDROCHLOROTHIAZIDE 25 MG TABLET PO SCH (08:29)
[2016-09-24] MEDS: PYRIDOXINE HCL 50 MG TABLET PO SCH (08:29)
[2016-09-24] MEDS: FERROUS SULFATE 325 MG EC TABLET PO SCH (08:29)
[2016-09-24] MEDS: ETHAMBUTOL HCL 400 MG TABLET PO SCH (08:30)
[2016-09-24] MEDS: ASPIRIN 81 MG EC TABLET PO SCH (08:31)
[2016-09-24] MEDS: PYRAZINAMIDE 500 MG TABLET PO SCH (08:31)
[2016-09-24] MEDS: CLOPIDOGREL BISULFATE 75 MG TABLET PO SCH (08:33)
[2016-09-24] MEDS: ISONIAZID 100 MG TABLET PO SCH (09:00)
[2016-09-24 10:59] LABS: GLUCOSE,POINT OF CARE 122 MG/DL (70-110)
[2016-09-24 10:59] LABS: GLUCOSE COMMENT 1 Received Meds; GLUCOSE,POINT OF CARE 239 MG/DL (70-110)
[2016-09-24 11:03] LABS: GLUCOSE,POINT OF CARE 119 MG/DL (70-110)
[2016-09-24 11:22] VITALS: BP_SYST 102; BP_SYST 94; BP_DIAS 53; BP_DIAS 68
[2016-09-24 13:17] LABS: GLUCOSE,POINT OF CARE 126 MG/DL (70-110)
[2016-09-24 16:25] VITALS: BP 110/93
[2016-09-24 17:37] LABS: GLUCOSE COMMENT 1 Received Meds; GLUCOSE,POINT OF CARE 187 MG/DL (70-110)
[2016-09-24] MEDS: INSULIN ASPART 100 UNITS/ML SQ PRN (17:42)
[2016-09-24 20:08] VITALS: BP 105/52
[2016-09-24] MEDS: PANTOPRAZOLE SODIUM 40 MG DR TABLET PO SCH (20:45)
[2016-09-24] MEDS: ATORVASTATIN CALCIUM 10 MG TABLET PO SCH (20:45)
[2016-09-24 20:57] LABS: GLUCOSE,POINT OF CARE 162 MG/DL (70-110)
[2016-09-25] MEDS ORDERED: RIFABUTIN 150 MG CAPSULE PO SCH
[2016-09-25 00:01] VITALS: BP 104/45
[2016-09-25] MEDS: SODIUM CHLORIDE 0.9% 1,000 ML IV SCH (00:15)
[2016-09-25 05:13] VITALS: BP 128/61
[2016-09-25] MEDS: CILOSTAZOL 100 MG TABLET PO SCH (05:59)
[2016-09-25 06:42] LABS: BASOPHILS % (AUTO) 0.2 % (0.0-2.0); EOSINOPHILS % (AUTO) 4.5 % (1.0-6.0); HEMATOCRIT 30.1 % (41-53); HEMOGLOBIN 9.7 g/dL (13.5-17.5); LYMPHOCYTES # (AUTO) 1.4 K/uL (1.0-4.8); LYMPHOCYTES % (AUTO) 30.6 % (22.0-44.0); MEAN CORPUSCULAR HEMOGLOBIN 27.3 pg (26.0-34.0); MEAN CORPUSCULAR HGB CONC 32.1 G/dL (31.0-37.0); MEAN CORPUSCULAR VOLUME 85 fL (80-100); MONOCYTES # (AUTO) 0.3 K/uL (0.1-1.0); MONOCYTES % (AUTO) 7.2 % (2.0-9.0); NEUTROPHILS # (AUTO) 2.6 K/uL (1.8-7.7); NEUTROPHILS % (AUTO) 57.5 % (40.0-70.0); PLATELET COUNT (AUTO) 203 K/uL (150-450); RED BLOOD CELL COUNT(AUTO) 3.54 MIL/uL (4.50-5.90); RED CELL DISTRIBUTION WIDTH 18.4 % (11.5-14.5); WHITE BLOOD COUNT (AUTO) 4.6 K/uL (4.5-11.0)
[2016-09-25 06:52] LABS: GLUCOSE,POINT OF CARE 87 MG/DL (70-110)
[2016-09-25 07:29] VITALS: BP 94/48
[2016-09-25] MEDS ORDERED: ETHAMBUTOL HCL 400 MG TABLET PO SCH (09:00)
[2016-09-25] MEDS: PYRIDOXINE HCL 50 MG TABLET PO SCH (09:00)
[2016-09-25] MEDS ORDERED: PYRAZINAMIDE 500 MG TABLET PO SCH (09:00)
[2016-09-25] MEDS: MEGESTROL ACETATE 400 MG/10 ML SUSPENSION UDCUP PO SCH (09:01)
[2016-09-25] MEDS: LACTOBACILLUS ACIDOPHILUS/BULGARICUS TABLET PO SCH (09:01)
[2016-09-25] MEDS: FERROUS SULFATE 325 MG EC TABLET PO SCH (09:01)
[2016-09-25] MEDS: CLOPIDOGREL BISULFATE 75 MG TABLET PO SCH (09:02)
[2016-09-25] MEDS: ASPIRIN 81 MG EC TABLET PO SCH (09:02)
[2016-09-25] MEDS: HYDROCHLOROTHIAZIDE 25 MG TABLET PO SCH (09:02)
[2016-09-25] MEDS: RIFABUTIN 150 MG CAPSULE PO SCH (09:03)
[2016-09-25 09:25] LABS: RBC MORPHOLOGY COMMENT ABNORMAL RBC MORPH
[2016-09-25 11:23] LABS: GLUCOSE,POINT OF CARE 146 MG/DL (70-110)
[2016-09-25 11:46] VITALS: BP 96/49
[2016-09-25] MEDS: ISONIAZID 100 MG TABLET PO SCH (12:36)
[2016-09-25] MEDS: INSULIN ASPART 100 UNITS/ML SQ PRN (12:36)
[2016-09-25 15:26] VITALS: BP 115/62
== END 2016-09-25 18:45 | disposition home or self-care (01) | DRG 177 ==
LOC: EMS 16:32 → 5N 20:33 → 6N 08-29 16:24
PROVIDERS: ADMIT Family Medicine; ATTEND Family Medicine
DX: A15.0 Tuberculosis of lung (principal); N17.0 Acute kidney failure with tubular necrosis; E44.1 Mild protein-calorie malnutrition; E87.1 Hypo-osmolality and hyponatremia; Z68.1 Body mass index [BMI] 19.9 or less, adult; J18.9 Pneumonia, unspecified organism; E11.9 Type 2 diabetes mellitus without complications; E78.5 Hyperlipidemia, unspecified; I25.10 Atherosclerotic heart disease of native coronary artery without angina pectoris; E78.00 Pure hypercholesterolemia, unspecified; E11.65 Type 2 diabetes mellitus with hyperglycemia; F17.210 Nicotine dependence, cigarettes, uncomplicated; D64.9 Anemia, unspecified; Z95.1 Presence of aortocoronary bypass graft; R19.7 Diarrhea, unspecified; I10 Essential (primary) hypertension; I25.2 Old myocardial infarction; Z87.11 Personal history of peptic ulcer disease; Z86.11 Personal history of tuberculosis; Z91.040 Latex allergy status; Z79.84 Long term (current) use of oral hypoglycemic drugs; Z79.82 Long term (current) use of aspirin; Z79.899 Other long term (current) drug therapy
CPT/HCPCS: 71260; 74000; 76770; 82271; 82533; 82962; 83036; 83735; 84132; 84145; 84443; 86022; 86480; 87015; 87040; 87081; 87149; 87188; 87324; 87389; 87449; 93005; 93306; 94640; 94799; 96361; 96365; 96368; 96375; 99285; C9113; J1956; J2405; J2543; J3475; J7030; J7040; J7050; J7060

== ENCOUNTER → 2017-08-01 | Outpatient (CLI) | payer OTHER ==
[~2017-08-01] VITALS: Ht 162.6 cm; Wt 54.0 kg
[~2017-08-01] MED LIST changes: -ASCO500 PO; -ASPI81TA2 PO; +ASPI81TA39 PO; +ATOR10TA84 PO; -ATOR20TA65 PO; +CILO100T PO; +CLOP75 PO; -GLIP5TAB11 PO; +HYDR25TA PO; +INSLAN SQ; +INSREG SQ; -ISOS30TA6 PO; -METO-325 PO; -NITR.4 SL; +OMEP20 PO; -[UNRECOGNIZED DRUG - CODE] PO
[2017-08-01 10:34] VITALS: BP 144/63
== END | disposition home or self-care (01) ==
LOC: HBOWC 09:23
PROVIDERS: ATTEND Nurse Practitioner Adult Health
DX: E11.621 Type 2 diabetes mellitus with foot ulcer (principal); L97.522 Non-pressure chronic ulcer of other part of left foot with fat layer exposed; E11.51 Type 2 diabetes mellitus with diabetic peripheral angiopathy without gangrene; K21.9 Gastro-esophageal reflux disease without esophagitis; E11.319 Type 2 diabetes mellitus with unspecified diabetic retinopathy without macular edema; E78.00 Pure hypercholesterolemia, unspecified; I25.10 Atherosclerotic heart disease of native coronary artery without angina pectoris; I10 Essential (primary) hypertension; E11.40 Type 2 diabetes mellitus with diabetic neuropathy, unspecified; I25.2 Old myocardial infarction; F17.210 Nicotine dependence, cigarettes, uncomplicated; Z95.1 Presence of aortocoronary bypass graft
CPT/HCPCS: 11042

== ENCOUNTER → 2017-08-08 | Outpatient (CLI) | payer OTHER ==
[~2017-08-08] MED LIST changes: -ASPI81TA39 PO; +LIDOCAINE HCL 2% 5 ML JELLY TP ONE
[2017-08-08 10:40] VITALS: BP 133/58
== END | disposition home or self-care (01) ==
LOC: HBOWC 09:47
PROVIDERS: ATTEND Nurse Practitioner Adult Health
DX: E11.621 Type 2 diabetes mellitus with foot ulcer (principal); L97.522 Non-pressure chronic ulcer of other part of left foot with fat layer exposed; E11.40 Type 2 diabetes mellitus with diabetic neuropathy, unspecified; E78.00 Pure hypercholesterolemia, unspecified; I25.10 Atherosclerotic heart disease of native coronary artery without angina pectoris; I10 Essential (primary) hypertension; K21.9 Gastro-esophageal reflux disease without esophagitis; E11.51 Type 2 diabetes mellitus with diabetic peripheral angiopathy without gangrene; E11.319 Type 2 diabetes mellitus with unspecified diabetic retinopathy without macular edema; I25.2 Old myocardial infarction; F17.210 Nicotine dependence, cigarettes, uncomplicated; Z87.19 Personal history of other diseases of the digestive system; Z95.5 Presence of coronary angioplasty implant and graft; Z79.4 Long term (current) use of insulin

== ENCOUNTER → 2017-08-22 | Outpatient (CLI) | payer OTHER ==
[~2017-08-22] MED LIST changes: -LIDOCAINE HCL 2% 5 ML JELLY TP ONE
[2017-08-22 09:52] VITALS: BP 133/50
== END | disposition home or self-care (01) ==
LOC: HBOWC 09:47
PROVIDERS: ATTEND Nurse Practitioner Adult Health
DX: E11.621 Type 2 diabetes mellitus with foot ulcer (principal); L97.522 Non-pressure chronic ulcer of other part of left foot with fat layer exposed; I25.10 Atherosclerotic heart disease of native coronary artery without angina pectoris; I10 Essential (primary) hypertension; K21.9 Gastro-esophageal reflux disease without esophagitis; I25.2 Old myocardial infarction; E78.00 Pure hypercholesterolemia, unspecified; E11.40 Type 2 diabetes mellitus with diabetic neuropathy, unspecified; E11.51 Type 2 diabetes mellitus with diabetic peripheral angiopathy without gangrene; E11.319 Type 2 diabetes mellitus with unspecified diabetic retinopathy without macular edema; Z90.49 Acquired absence of other specified parts of digestive tract; F17.210 Nicotine dependence, cigarettes, uncomplicated; Z95.1 Presence of aortocoronary bypass graft; Z95.5 Presence of coronary angioplasty implant and graft; Z79.4 Long term (current) use of insulin

== ENCOUNTER → 2017-09-05 | Outpatient (CLI) | payer OTHER ==
[~2017-09-05] MED LIST changes: -METF10002 PO; +METF10004 PO
[2017-09-05 09:24] VITALS: BP 138/67
== END | disposition home or self-care (01) ==
LOC: HBOWC 09:18
PROVIDERS: ATTEND Nurse Practitioner Adult Health
DX: E11.621 Type 2 diabetes mellitus with foot ulcer (principal); L97.522 Non-pressure chronic ulcer of other part of left foot with fat layer exposed; E11.40 Type 2 diabetes mellitus with diabetic neuropathy, unspecified; E11.319 Type 2 diabetes mellitus with unspecified diabetic retinopathy without macular edema; E11.51 Type 2 diabetes mellitus with diabetic peripheral angiopathy without gangrene; I10 Essential (primary) hypertension; K21.9 Gastro-esophageal reflux disease without esophagitis; I25.2 Old myocardial infarction; E78.00 Pure hypercholesterolemia, unspecified; I25.10 Atherosclerotic heart disease of native coronary artery without angina pectoris; E55.9 Vitamin D deficiency, unspecified; F17.210 Nicotine dependence, cigarettes, uncomplicated; Z95.1 Presence of aortocoronary bypass graft; Z79.4 Long term (current) use of insulin; Z90.49 Acquired absence of other specified parts of digestive tract; Z95.5 Presence of coronary angioplasty implant and graft

== ENCOUNTER → 2017-09-19 | Outpatient (CLI) | payer OTHER ==
[2017-09-19 10:01] VITALS: BP 141/56
== END | disposition home or self-care (01) ==
LOC: HBOWC 09:40
PROVIDERS: ATTEND Nurse Practitioner Adult Health
DX: E11.621 Type 2 diabetes mellitus with foot ulcer (principal); L97.521 Non-pressure chronic ulcer of other part of left foot limited to breakdown of skin; E11.51 Type 2 diabetes mellitus with diabetic peripheral angiopathy without gangrene; E11.319 Type 2 diabetes mellitus with unspecified diabetic retinopathy without macular edema; K21.9 Gastro-esophageal reflux disease without esophagitis; E78.00 Pure hypercholesterolemia, unspecified; I25.10 Atherosclerotic heart disease of native coronary artery without angina pectoris; E11.40 Type 2 diabetes mellitus with diabetic neuropathy, unspecified; I10 Essential (primary) hypertension; F17.210 Nicotine dependence, cigarettes, uncomplicated; Z90.49 Acquired absence of other specified parts of digestive tract; Z95.1 Presence of aortocoronary bypass graft; Z95.5 Presence of coronary angioplasty implant and graft; Z79.4 Long term (current) use of insulin